=== PATIENT | female | born 2005 | race Asian ===

== ENCOUNTER 2024-08-04 16:26 | Emergency (ER) | payer OTHER, SELFPAY ==
[2024-08-04 16:52] VITALS: BP 133/83; PULSE 46; RESP 18; TEMP 36.3; O2SAT 97; BMI 23.6
[2024-08-04 17:12] LABS: Basophils Absolute Auto 0.05 K/uL (0.00-0.30); Basophils Percent Auto 0.7 % (0.0-3.0); Eosinophils Absolute Auto 0.11 K/uL (0.00-0.50); Eosinophils Percent Auto 1.5 % (0.0-7.0); Hemoglobin* 13.8 gm/dL (12.0-16.0); Immature Granulocytes Abs Auto 0.01 K/uL (0.00-0.30); Immature Granulocytes Pct Auto 0.1 %; Lymphocytes Absolute Auto 2.35 K/uL (0.90-2.90); Lymphocytes Percent Auto 31.6 % (20-44); Mean Corpuscular HGB Conc 32 gm/dL (32-36); Mean Corpuscular Hemoglobin 31 pg (26-34); Mean Corpuscular Volume 97 fL (80-100); Monocytes Percent Auto 5.1 % (0.0-11.0); Neutrophils Absolute Auto 4.53 K/uL (1.7-7.0); Platelet Count* 251 K/uL (140-440); Red Blood Count 4.43 m/uL (4.00-5.20); White Blood Count* 7.43 K/uL (4.50-11.00)
[2024-08-04 17:26] LABS: Slide Review Reflex No
[2024-08-04 17:36] LABS: Albumin* 5.1 g/dL (3.3-5.0); Chloride* 102 mmol/L (96-114); Potassium* 5.2 mmol/L (3.6-5.1); Sodium* 140 mmol/L (135-149)
[2024-08-04 17:38] LABS: Blood Urea Nitrogen* 18 mg/dL (5-24); Creatinine* 0.8 mg/dL (0.6-1.2); Est. Creatinine Clearance* 94.76; Estimated Glomerular Filt Rate 109 ml/min
[2024-08-04 17:39] LABS: Alanine Aminotransferase* 27 U/L (4-35); Alkaline Phosphatase* 68 U/L (40-150); Anion Gap 9 mEq/L (7-15); Aspartate Amino Transferase* 41 U/L (12-35); Bilirubin Direct* 0.3 mg/dL (0.0-0.5); Bilirubin Total* 1.1 mg/dL (0.1-1.5); Carbon Dioxide* 29 mmol/L (20-32); Glucose* 87 mg/dL (60-115); Phosphorus* 3.2 mg/dL (2.5-4.5); Total Protein* 8.4 g/dL (6.0-8.3)
--- NOTE | 2024-08-04 19:10 | ED_ITS ---
HPI - General Adult General Time Seen by Provider: 19:10 Date Seen: 08/04/24 Chief complaint: Arrhythmia/Palpitations Stated complaint: low Heart Rate Time Seen by Provider: 08/04/24 16:34 Source: patient, RN notes reviewed and other Mode of arrival: ambulatory Limitations: no limitations History of Present Illness HPI narrative: This 18-year-old female was sent in by a nurse practitioner Sarah from [facility] for assessment of labs and EKG. Patient was in for follow-up appointment, had not been seen for about 3 weeks. She is starting care through them for anorexia nervosa. Her heart rate was between 40-43 there. They have plans for follow- up. She is wanting her to get labs in have an EKG done here for medical monitoring and safety. Patient does present here, she tells me she is not suicidal. She has intent on following through with her management for her eating disorder and working with [facility]. She is just worried about her heart rate now. We did discuss that heart rate below 40 is 1 of the clinical indications for hospitalization and hers has not been here. 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 We did review that athlete's can have lower resting heart rates as well. She does not have any other concerns for us. Related Data Home Medications ?Medication ?Instructions ?Recorded ?Confirmed No Known Home Medications 08/04/24 08/04/24 Allergies Allergy/AdvReac Type Severity Reaction Status Date / Time No Known Drug Allergies Allergy Verified 08/04/24 17:04 Review of Systems Status of ROS: Reports: 6 or more systems reviewed and unremarkable except as noted in History and below [facility] Medical History (Updated 08/04/24 @ 19:35 by Tesha Rueda MD) Anorexia nervosa ?F50.00 - Anorexia nervosa, unspecified (ICD-10) Social History Do you use any of these nicotine containing products: None How often do you have a drink containing alcohol: never AUDIT-C Alcohol total score: 0 Non-prescribed substance use: denies use Exam Const: Vital Signs, click to edit/add: Vital Signs - 24 hr 08/04/24 16:52 Temperature 97.3 F L Pulse Rate [Pulse Oximeter] 46 L Respiratory Rate 18 Blood Pressure [Ri ght Upper Arm] 133/83 Pulse Oximetry 97 Oxygen Delivery Me thod Room Air This 18-year-old female is alert, interactive, no apparent distress. She has good eye contact. Pupils are equal round, conjugate gaze, sclera clear. Symmetrical facial function. Neck is supple, no thyromegaly masses or adenopathy noted. Lungs are clear, good air entry, wheeze and crackles. CV regular rhythm, slower rate, 50s on monitoring of pulse oximetry. I do not hear any murmur, normal S1-S2. Documenting provider has reviewed patient's vital signs: yes Course Course ED Course: Reviewed with patient that her EKG is reassuring despite the sinus bradycardia. Indications for hospitalization for low heart rate are below 40. She certainly is not meeting that threshold. Her labs are reassuring. We discussed the importance of following through on medical management outpatient for anorexia. There can be significant cardiac complications in she does need to continue to be monitored. This time she is safe for discharge for further outpatient monitoring. Vital Signs Vital signs: Initial Vital Signs Temperature 97.3 F L 08/04/24 16:52 Temperature Source Temporal Artery Scan 08/04/24 16:52 Pulse Rate 46 L 08/04/24 16:52 Respiratory Rate 18 08/04/24 16:52 Blood Pressure 133/83 08/04/24 16:52 Blood Pressure Mean 99 08/04/24 16:52 Pulse Oximetry 97 08/04/24 16:52 Oxygen Delivery Method Room Air 08/04/24 16:52 Vital Signs Temperature 97.3 F L 08/04/24 16:52 Pulse Rate 46 L 08/04/24 16:52 Respiratory Rate 18 08/04/24 16:52 Blood Pressure 133/83 08/04/24 16:52 Pulse Oximetry 97 08/04/24 16:52 Oxygen Delivery Method Room Air 08/04/24 16:52 Temperature 97.3 F L 08/04/24 16:52 Pulse Rate 46 L 08/04/24 16:52 Respiratory Rate 18 08/04/24 16:52 Blood Pressure 133/83 08/04/24 16:52 Pulse Oximetry 97 08/04/24 16:52 Oxygen Delivery Method Room Air 08/04/24 16:52 Medical Decision Making Lab Data Lab results reviewed: Yes I reviewed the patient's lab results Labs: Lab Results 08/04/24 Range/Units 17:06 WBC 7.43 (4.50-11.00) K/uL RBC 4.43 (4.00-5.20) m/uL Hgb 13.8 (12.0-16.0) gm/dL Hct 43.0 (33.0-51.0) % MCV 97 (80-100) fL MCH 31 (26-34) pg MCHC 32 (32-36) gm/dL RDW Coeff of Heath 12.0 (11.5-15.5) % Plt Count 251 (140-440) K/uL Neut % (Auto) 61.0 (42.0-72.0) % Lymph % (Auto) 31.6 (20-44) % [place] % (Auto) 5.1 (0.0-11.0) % Eos % (Auto) 1.5 (0.0-7.0) % Baso % (Auto) 0.7 (0.0-3.0) % Neut # (Auto) 4.53 (1.7-7.0) K/uL Lymph # (Auto) 2.35 (0.90-2.90) K/uL [place] # (Auto) 0.40 (0.00-0.90) K/UL Eos # (Auto) 0.11 (0.00-0.50) K/uL Baso # (Auto) 0.05 (0.00-0.30) K/uL Abs Immat Gran (auto) 0.01 (0.00-0.30) K/uL Imm/Tot Granulo (auto) 0.1 % Sodium 140 (135-149) mmol/L Potassium 5.2 H (3.6-5.1) mmol/L Chloride 102 (96-114) mmol/L Carbon Dioxide 29 (20-32) mmol/L Anion Gap 9 (7-15) mEq/L BUN 18 (5-24) mg/dL Creatinine 0.8 (0.6-1.2) mg/dL Estimated Creat Clear 94.76 Estimated GFR 109 ml/min Glucose 87 (60-115) mg/dL Calcium 10.0 (8.7-10.8) mg/dL Phosphorus 3.2 (2.5-4.5) mg/dL Magnesium 2.0 (1.5-2.6) mg/dL Total Bilirubin 1.1 (0.1-1.5) mg/dL Direct Bilirubin 0.3 (0.0-0.5) mg/dL AST 41 H (12-35) U/L ALT 27 (4-35) U/L Alkaline Phosphatase 68 (40-150) U/L Total Protein 8.4 H (6.0-8.3) g/dL Albumin 5.1 H (3.3-5.0) g/dL ECG Data Attestation: I personally reviewed and interpreted this ECG as follows: (Sinus bradycardia, 50 beats per minute. Computer does not note any KS interval lengthening, no first-degree AV block. There is no active ST or T-wave change s.) Prior ECG tracings: not available for review Discharge Plan Discharge Clinical Impression: Anorexia nervosa, Bradycardia Patient Disposition: Home, Self-Care Condition: Stable Instructions: Anorexia (DC), Bradycardia (ED) Additional Instructions: Need to continue to follow up at [facility] with your medical providers. Can monitor your pulse, if it is dropping below 40, do need medical re-evaluation. Activity Level: Activity as Tolerated Prescriptions: No Action No Known Home Medications Stand Alone Forms: [employer] Info Instructions
--- OUTSIDE RECORDS SUMMARY | 2024-08-04 19:37 | XMS_ITS | Encounter Summary ---
Author Organization [facility] No [facility] [place] Address [address] [place] [place] [address] Care Team Providers Care Guest Services Manager Name Role Phone Radha Dominguez) Primary Care Pr ovider -[phone] Reason for Visit * Reason Comments MESSAGE CENTER CALL Encounter Details Date Type Department Care Team (Late st Contact Info) Description 07/10/2024 [facility] Telephone ADULT MEDICINE [address] [place] [address] Xena Cook (R.N.) [address] [place] [address] MESSAGE CENTER CALL Social History Tobacco Use Types Packs/Day Years Used Date Smoking Tobacco: Never Smokeless Tobacco: Never Alcohol Use Standard Drinks/Week Comments Never 0 (1 standard drink = 0.6 oz pur e alcohol) AUDIT-C Answer Date Recorded Frequency of Alcohol Consumption Never 12/02/2019 Average Number of Drinks Not on file 020 Frequency of Binge Drinking Not on file 07/2019 Substance Use Types Use/Week Comments Never Sex and Gender Information Value Date Recorded Sex Assigned at Not on file Gender Identity Not on file Sexual Orientation Not on file documented as of this encounter Miscellaneous Notes * Telephone Encounter - Janet GroverAStevie) - 07/11/2024 10:04 AM PDT Unable to get a hold of the patient over the phone. Left voicemail for patient to call back to the Call Center. [place]: If the patient calls back, please relay the following message to the patient. Please no need to send an AACC message to PCP office to confirm patient received message. Message for the patient: A follow up in-person office appointment is needed. We have booked an appointment Future Appointments Appointment Date & Time Visit Type Provider Department/Facility Jul 28, 2024 1:50 PM PDT Office Visit Radha Dominguez) ADULT MEDICINE ([facility]) * Telephone Encounter - Xena Cook (R.N.) - 07/10/2024 2:01 PM PDT MA: please assist. TIFFANI with PCP. XENA COOK RN * Telephone Encounter - Xena CookRStevieNStevie) - 07/10/2024 2:01 PM PDT <<<Interfaced Call Center message copied by Xena Cook (R.N.) on [facility] Jul 10, 2024 02:01 PM>>> >>> Original Message --- Received: Katherine Jul 10, 2024 1:59 PM Message Type: Other - [facility], Message Priority: Urgent Member - Message sent: 07/10/2024 13:59:28 PM To: Dwayne DOMINGUEZ M.D., Facility: [facility], Department: MED SCRIPT OUTCOMES: Script Used: CALL BACK Script Answers: MANDATORY TELEPHONE ENCOUNTER DOCUMENTATION: Y - Encounter closed Y - Encounter directs TSR to book appointment MESSAGE TO PROVIDER: (Non-Urgent, Member Urgent, returning call from facility/reason unknown) Y - Encounter closed unable to warm transfer to [facility] ROUTINE/APPOINT AT MEMBER CONVENIENCE: Appropriate for TAV, Video or Office Visit. Y - Booking per telephone encounter instructions WHAT DOES THE MEMBER WANT: Member wants: Call Back ADDITIONAL INFORMATION: Pt. returning missed call from the clinic. No answer at TST station. Message relayed to pt per [facility] workflow. Pt wants to set up physical either next week or the week after asshe will be on her Spring break. Dizziness is better today. No appointments found per AAC search. Please call pt. back to assist. Pharmacy: Not Applicable : No LMP: 06/30/2024 CONTACT INFORMATION: Contact Name, Relationship to Member: George Alberto, Self Contact Instructions: Anytime Phone Today/Tomorrow: [phone] Preferred Language: Latvian CALLBACK PERMISSION: OK to leave information on voicemail SunJul 10 13:59:29 PDT 2024 Telephone Geophysical Laboratory Chief (TSR) : Tejal Fitch Contact Center: [place] [facility] documented in this encounter Plan of Treatment Not on file documented as of this encounter Visit Diagnoses Not on filedocumented in this encounter Care Teams Guest Services Manager Relationship Specialty Start Date End Date Radha Dominguez) [address] [place] [address] [phone] (Work) PCP - General 03/30/24 documented as of this encounter
--- OUTSIDE RECORDS SUMMARY | 2024-08-04 19:37 | XMS_ITS | Encounter Summary ---
Author Organization [facility] No [facility] [place] Address [address] [place] [address] Care Team Providers Care Application Performance Engineer Name Role Phone Cecily Mack) Primary Care Provider -[phone] Mayra Souza (D.OStevie) Primary Care Provide r -[phone] Monisha Weldon) Primary Care Provider Unavailable Liza Vincent) Primary Care Prov ider Unavailable Radha Segal) Primary Care Pr ovider -[phone] Encounter Details Date Type Department Care Team (Late st Contact Info) Description 08/10/2022 Telephone PEDIATRICS [address] [place] [address] Stephane Hernandez (R.N.) [address] [place] [address] Social History Tobacco Use Types Packs/Day Years [...] encounter Miscellaneous Notes * Telephone Encounter - Stephane Hernandez (R.NStevie) - 08/10/2022 10:13 AM PDT Called 2 times to schedule teen weight check documented in this encounter Plan of Treatment Not on file documented as of this encounter Visit Diagnoses Not on filedocumented in this encounter Care Teams Application Performance Engineer Relationship Specialty Start Date End Date Cecily Mack) [address] [place] [phone] (Work) PCP - General 02/09/17 11/11/22 Mayra Souza.June) [address] [place] [phone] -[phone] (Work) PCP - General 11/12/22 11/17/22 Mnoisha Weldon) [address] [place] [phone] PCP - General 11/18/22 08/31/23 Liza Vincent) [address] [place] [phone] PCP - General 12/10/23 Radha Segal) [address] [place] [address] -[phone] (Work) PCP - General 03/30/24 documented as of this encounter
--- OUTSIDE RECORDS SUMMARY | 2024-08-04 19:37 | XMS_ITS | Clinical Summary ---
Author Organization [facility] [place] Address [address] [place] [address] Care Team Providers Care Monkey Trainer Name Role Phone Radha Segal) Primary Care Pr ovider -[phone] Source Comments NOTE: The information displayed by Care Everywhere is extracted from the complete medical record and may not identify all current or past patient conditions.[facility] Allergies Active Allergy Reactions Criticality Noted Date Comments Amoxicillin With Clavulanate Potassium 03/25/2019 rash Peanut - Dietary Itching 01/09/2014 Medications Medication Sig Dispensed Refills Start Date End Date Status Inhalational Spacer (AEROCHAMBER) Misc SpacerIndications: ASTHMA, UNSPECIFIED Use as directed with inhaler 1 Each 02/21/2021 Active EPINEPHrine (ADRENACLICK/EPIPE N) 0.3 mg/0.3 mL Inj AutoInjectorIndica tions:PEANUT ALLERGY INJECT 0.3 ML INTO THIGH AT THE FIRST SIGN OF SEVERE ALLERGIC REACTION OR DIRECTED 2 Each 2 04/21/2021 Active Polyethylene Glycol 3350 (MIRALAX/GLYCOLAX) 17 gram/dose Oral PowdIndications:CO NSTIPATION Mix 17 Grams in 4 to 8 ounces of water or juice and drink by mouth daily as directed for constipation 119 g 03/22/2022 Active norethindrone-e.es tradiol-iron (Junel FE 05/19, ,) 1 mg-20 mcg (21)/75 mg (7) Oral TabIndications:CON TRACEPTIVE COUNSELING Take 1 tablet by mouth daily 84 tablet 3 11/20/2022 11/19/2024 Active Azelastine (ASTELIN) 137 mcg (0.1 %) Nasl SprayIndications:A LLERGIC RHINITIS,HYPERTROP HY OF NASAL TURBINATES Use 2 Sprays in each nostril 2 times a day 60 mL 3 07/17/2023 09/02/2024 Active Albuterol (PROVENTIL/VENTOLI N) 2.5 mg /3 mL (0.083 %) Inhl Neb SolnIndications: THMA, UNSPECIFIED Use 3 mL via nebulizer every 4 hours as needed for quick relief of asthma symptoms (3 mL = 1 vial) 75 mL 04/01/2024 04/01/2026 Active Ciclesonide (Alvesco) 80 mcg/actuation Inhl HFAAIndications: THMA, UNSPECIFIED Inhale 1 Puff by mouth 2 times a day for asthma prevention and control. Rinse mouth well after use 6.1 g 05/01/2024 05/01/2025 Active Fluticasone (FLONASE ALLERGY RELIEF) 50 mcg/actuation Nasl SpSnIndications:AL LERGIC RHINITIS,HYPERTROP HY OF NASAL TURBINATES Use 2 sprays in each nostril daily for 1 week. May adjust to 1 or 2 sprays in each nostril daily 16 mL 05/15/2024 05/15/2026 Active Albuterol (PROAIR/PROVENTIL/ VENTOLIN) 90 mcg/actuation Inhl HFAAIndications: THMA, UNSPECIFIED Inhale 2 Puffs by mouth every 4 hours as needed for wheezing , shortness of breath or cough . For use at school or work. 100 days supply for asthma is 1 canister 6.7 g 07/10/2022 07/09/2024 Active Problems Problem Noted Date Diagnosed Date UNINTENTIONAL WEIGHT LOSS 04/28/2022 GENERALIZED ANXIETY DISORDER 06/02/2020 OBSESSIVE COMPULSIVE DISORDER 04/14/2020 ANOREXIA NERVOSA, RESTRICTING TYPE, UNSPECIFIED 04/11/2020 HX OF EATING DISORDER 12/02/2019 Overview (12/10/2019): Admitted 12/01 with 20# weight loss since June 2019 and bradycardia. D/c 12/09 to [facility]. BRADYCARDIA 12/02/2019 Overview (12/10/2019): 12/01 admission for bradycardia in the setting of restrictive eating and over-exercising. Outpatient HR 44, first night of admission HR 35. 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 Encounters Date Type Department Care Team Description 07/18/2024 [facility] Telephone ADULT MEDICINE [address] [place] [phone] Xena Klein (R.N.) PHYSICAL EXAM, ANNUAL 07/10/2024 [facility] Telephone ADULT MEDICINE [address] [place] [phone] Xena Klein (R.N.) MESSAGE CENTER CALL 07/10/2024 [facility] Member Call History MEDICINE [address] [place] [address] WEIGHT PROBLEM 07/10/2024 [facility] Telephone ADULT MEDICINE [address] [place] [phone] Xena Klein (R.N.) WEIGHT PROBLEM 06/25/2024 Patient Secure Message - / [facility] [address] [place] [phone] Simi Murphy (Psjennie) Letter for my diagnoses 06/25/2024 Patient Secure Message - / [facility] [address] [place] [phone] Ryann Hernández (Ps) Letter of my diagnosis 05/15/2024 Refill HEAD & NECK SURGERY [address] [place] [phone] Radha Segal (Dimitris) Medication Refill from Last 3 Months Immunizations Name Administration Dates Next Due COVID-19 mRNA LNP-S, bivalen t PF 12yrs-adult ([facility]), 30mcg/0.3mL 01/14/2022 COVID-19 mRNA, LNP-S, PF ([facility]) PURPLE CAP 10/16/2020,09/25/2020 DTaP (Diphtheria, Tetanus, a cellular Pertussis) 04/06/2006 BWqP-IHY-HSE (PEDIARIX) (Dip htheria, Tetanus, Acellular pertussis, Hepatitis B, Polio) 03/31/2005,02/03/2005,2004 DTaP-ALY (KINRIX) (Diphtheri a, tetanus, acellular pertussis, polio) 07/05/2009 HAV (Hepatitis A) 10/08/2006,10/13/2005 HIB (Haemophilus influenzae b) 6,03/31/2005,02/03/2005,06/2004 HPV9 (Human Papillomavirus) 9 valent 05/05/2019, 04/19/2018 INF (Influenza) unspecified formulation 01/09/2014,02/27/2011,03/08/2010,02/28,01/28/2007,04/06/2006,03/31/20 05 INF [id number] dose (Influenza I5W7-25). 03/02/2009 INFS Pres Free 6mos-Adult (F lulaval Quadrivalent) (Influenza) 04/19/2018 INFS pres free 65yrs and ove r (Fluad trivalent) (influenza) 02/07/2013,02/03/2012 INFS pres free 6mos-adult (F luarix quadrivalent) (influenza) 04/21/2021,06/08/2020,05/05/2019 MEN-ACYW (MENVEO) (meningoco ccal oligosaccharide ACYW-135) 04/21/2021,04/19/2018 MMR (Measles, Mumps, Rubella) 09/28/2009 MMR-MARLEEN (Measles, Mumps, Rub radha, Varicella) 01/08/2006,01/08/2006 PCV (Pneumococcal conjugate, pneumonia) 10/13/2005,03/31/2005,02/03/2005,06/2004 TB-PPD, (TB skin test) 07/05/2009 Tdap (Tetanus, diphtheria, a cellular pertussis) 11/30/2016 MARLEEN (Varicella, chickenpox) 02/07/2013 Social History Tobacco Use Types Packs/Day Years Used Date Smoking Tobacco: Never Smokeless Tobacco: Never Tobacco Cessation:Counseling Given: Not Answered Alcohol Use Standard Drinks/Week Comments Never 0 [...] on file Sexual Orientation Not on file Last Filed Vital Signs Vital Sign Reading Time Taken Comments Blood Pressure 115/68 11/20/2022 2:42 PM PDT Pulse 57 11/20/2022 2:42 PM PDT Temperature 36.9 C (98.4 F) 11/20/2022 2:42 PM PDT Respiratory Rate 19 12/10/2019 11:51 AM PDT Oxygen Saturation 97% 11/20/2022 2:42 PM PDT Inhaled Oxygen Concentration - - Weight 51.4 kg (113 lb 4.8 oz) 11/20/2022 2:42 P M PDT Height 148 cm (4' 10.27) 04/28/2022 10:00 AM PS T Body Mass Index - - Plan of Treatment Health Maintenance Due Date Last Done Comments PCV20 VACCINE (2 - PCV20/PPSV23) 10/13/2006 10/13/2005, 03/31/2005, 02/03/2005, Additional history exists COVID-19 VACCINE (KP) (2 - P fizer (>=12yrs)) 03/11/2022 01/14/2022, 10/16/2020, 09/25/2020 HIV SCREEN 2022 FLU VACCINE (1) 01/29/2024 04/21/2021, 02/0 12/2020, 05/05/2019, Additional history exists CHLAMYDIA SCREEN 04/30/2024 TDAP VACCINE (2 - Tdap) 11/30/2026 11/30/2016 HEPATITIS B VACCINE Completed 03/31/2005, 02/03/2005, 2004 HPV VACCINE Completed 05/05/2019, 04/19/2018 MENINGOCOCCAL VACCINE Completed 04/21/2021, 018 MARY SCREEN Completed 04/28/2022 Procedures Procedure Name Priority Date/Time Associated Diagnosis Comments SCREENING PERFORMED, ADVERSE CHILDHOOD EXPERIENCE (MARY) <=3 Today 04/28/2022 10:01 AM PST from Last 3 Months or Most Recently Relevant to Health Maintenance Advance Directives * Full Code (Latest Code Status on File) Date Activated Date Inactivated Comments 12/02/2019 6:54 PM 12/11/2019 1:53 AM * Full Code Date Activated Date Inactivated Comments 03/20/2019 1:56 PM 03/21/2019 2:45 AM Care Teams Monkey Trainer Relationship Specialty Start Date End Date Radha Segal) [address] [phone] -[phone] (Work) [facility] - General 03/30/24
--- OUTSIDE RECORDS SUMMARY | 2024-08-04 19:37 | XMS_ITS | Encounter Summary ---
Author Organization [facility] No [facility] [place] Address [address] [place] [address] Care Team Providers Care Jigsawyer Name Role Phone Liza Vincent) Primary Care Prov Radha Webb) Primary Care Pr ovider -[phone] Encounter Details Date Type Department Care Team (Latest Contact Info) Description 12/28/2023 Pharmacy Initiated Order HEAD & NECK SURGERY [address] [place] [address] ALLERGIC RHINITIS; HYPERTROPHY OF NASAL TURBINATES Social History Tobacco Use Types Packs/Day Years [...] on file documented as of this encounter Plan of Treatment Not on file documented as of this encounter Visit Diagnoses Diagnosis ALLERGIC RHINITIS HYPERTROPHY OF NASAL TURBINATES documented in this encounter Care Teams Jigsawyer Relationship Specialty Start Date End Date Liza Vincent) [address] [place] [address] PCP - General 12/10/23 Radha Segal) [address] [place] [phone] -[phone] (Work) PCP - General 03/30/24 documented as of this encounter
--- OUTSIDE RECORDS SUMMARY | 2024-08-04 19:37 | XMS_ITS | Encounter Summary ---
Author Organization [facility] No [facility] [place] Address [address] [place] [address] Care Team Providers Care Director Television News Name Role Phone Radha Dominguez) Primary Care Pr ovider -[phone] Reason for Visit * Reason Comments PHYSICAL EXAM, ANNUAL Encounter Details Date Type Department Care Team (Late st Contact Info) Description 07/18/2024 [facility] Telephone ADULT MEDICINE [address] [place] [address] Xena Klein (R.N.) [address] [place] [address] PHYSICAL EXAM, ANNUAL Social History Tobacco Use Types Packs/Day Years [...] Miscellaneous Notes * Telephone Encounter - Janet Grover) - 07/21/2024 1:40 PM PDT S/W patient. Booked TIFFANI with associate provider. * Telephone Encounter - Xena Klein (R.N.) - 07/21/2024 9:03 AM PDT MA: please call pt and book a TIFFANI with PCP. * Telephone Encounter - Xena Klein (R.NStevie) - 07/21/2024 9:03 AM PDT <<<Interfaced Call Center message copied by Xena Klein (R.N.) on SunJul 21, 2024 09:03 AM>>> >>> Original Message --- Received: SunJul 18, 2024 4:45 PM Message Type: Appointment Request, Message Priority: Non-Urgent - Message sent: 07/18/2024 16:45:37PM To: Dwayne DOMINGUEZ M.D., Facility: [facility], Department: MED SCRIPT/PROTOCOL OUTCOMES: Script Used: PHYSICAL - WITH/WITHOUT MD/ERP ENGINEER Script Answers: APPOINT DURING OFFICE HOURS WITHIN 2 WEEKS: Y - Requests physical BOOKING TIMEFRAME: Within 2 Weeks REASON: No appointments available within appropriate booking timeframe SYMPTOMS: N/A ONSET AND DURATION: N/A WHAT IS BEING REQUESTED OF THE CLINICIAN: Requesting TIFFANI for physical next week PCP preferably, but willing to see another physician if PCP not available ADDITIONAL INFORMATION: Patient is scheduled for 07/28, but will be going back to school. Pharmacy: Not Applicable : No LMP: 07/07/2024 CONTACT INFORMATION: Contact Name, Relationship to Member: George Vazquez, Self Contact Instructions: Anytime on Sunday Phone Today/Tomorrow: [phone] Preferred Language: Lao OK to Send Secure Message: Yes CALLBACK PERMISSION: OK to leave information on voicemail SunJul 18 16:45:37 PDT 2024 Telephone Principal Statistical Programmer (TSR) : Heidi Umana [facility] documented in this encounter Plan of Treatment Not on file documented as of this encounter Visit Diagnoses Not on filedocumented in this encounter Care Teams Director Television News Relationship Specialty Start Date End Date Radha Dominguez) [address] [place] [address] -[phone] (Work) PCP - General 03/30/24 documented as of this encounter
--- OUTSIDE RECORDS SUMMARY | 2024-08-04 19:37 | XMS_ITS | Encounter Summary ---
Author Organization [facility] No [facility] [place] Address [address] [place] [address] Care Team Providers Care Pan Tank Worker Name Role Phone Radha Segal) Primary Care Pr ovider -[phone] Reason for Visit * Reason Comments WEIGHT PROBLEM Encounter Details Date Type Department Care Team (Late st Contact Info) Description 07/10/2024 [facility] Member Call History MEDICINE [address] [place] [phone] WEIGHT PROBLEM Social History Tobacco Use Types Packs/Day Years [...] as of this encounter Miscellaneous Notes * [facility] Call History - CALL CENTER ADVICE NURSE - 07/10/2024 10:16 AM PDT [facility] MEMBER CALL HISTORY MemberID: [id number] Date & Time: 07/10/2024 09:50 AM Location: [facility] Handled by: Theresa Coronel (RN) Call Notes: Mccracken Symptoms and Assessment: low HR in the 50s, HR 50 BP: 119/76 laying, 87, 120/63 standing, vomit(5x in 24 hrs) x 2 wks; restricted diet/purging x few mths worsened since 1 mth ago; denies fever/dizziness/pain/fainting; Pertinent History: anorexia nervosa/ baseline HR: 60s; last BM yesterday Other: currently in [facility]; will be returning to [facility] next wk requests TIFFANI on 07/16 with any clinician; Protocols: 1. Medicine - WEIGHT PROBLEMS/EATING DISORDER Member Responses for Protocol: No Outcome Questions Response 1. EMERGENT CONSULT: : Member does not meet the criteria but in RN`s judgment should be seen in this category. Yes 2. ROUTINE APPOINT AT MEMBER CONVENIENCE: Appropriate for Video Visit, TAV or Office Visit : Appoint per CCMD recommendation Yes Dispositions: EMERGENT CONDITION Activate Appointment Search Person Consulted: Daryl Dash Consult Reason: per Protocol Additional Information: ER if she developed fainiting/pain/dizziness Recommendations: Advice per MD Message Appointment documented in this encounter Plan of Treatment Not on file documented as of this encounter Visit Diagnoses Not on filedocumented in this encounter Care Teams Pan Tank Worker Relationship Specialty Start Date End Date Radha Segal) [address] [place] [address] -[phone] (Work) PCP - General 03/30/24 documented as of this encounter
--- OUTSIDE RECORDS SUMMARY | 2024-08-04 19:38 | XMS_ITS | Encounter Summary ---
Author Organization [facility] No [facility]thern [place] Address [address] [place] [address] Care Team Providers Care Real Estate Site Analyst Name Role Phone Cecily Mack) Primary Care Provider -[phone] Mayra Souza (D.OStevie) Primary Care Provide r -[phone] Monisha Weldon) Primary Care Provider Unavailable Liza Vincent) Primary Care Prov ider Unavailable Radha Segal) Primary Care Pr ovider -[phone] Encounter Details Date Type Department Care Team (Late st Contact Info) Description 12/31/2019 Clinical Documentati on MH/ CHILD AND FAMILY PSYCHIATRY [address] [place] [phone] [place] [address] Social History Tobacco Use Types Packs/Day Years Used Date Smoking Tobacco: Never Alcohol Use Standard Drinks/Week Comments Never 0 (1 standard drink = 0.6 oz pur e alcohol) AUDIT-C Answer Date Recorded Frequency of Alcohol Consumption Never 12/02/2019 Average Number of Drinks Not on file 020 Frequency of Binge Drinking Not on file 07/2019 Sex and Gender Information Value Date Recorded Sex Assigned at Not on file Gender Identity Not on file Sexual Orientation Not on file documented as of this encounter Plan of Treatment Not on file documented as of this encounter Visit Diagnoses Not on filedocumented in this encounter Care Teams Real Estate Site Analyst Relationship Specialty Start Date End Date Cecily Mack) [address] [place] [address] -[phone] (Work) PCP - General 02/09/17 11/11/22 Mayra SouzaD.OStevie) [address] [place], [place] [address] [address] -[phone] (Work) PCP - General 11/12/22 11/17/22 Monisha Weldon) [address] [place], [place] [address] [place] [address] PCP - General 11/18/22 08/31/23 Liza Vincent) [address] [place], [place] [address] [address] PCP - General 12/10/23 Radha Segal) [address] [place] [address] -[phone] (Work) PCP - General 03/30/24 documented as of this encounter
--- OUTSIDE RECORDS SUMMARY | 2024-08-04 19:38 | XMS_ITS | Encounter Summary ---
Author Organization [facility] No [facility] [place] Address [address] [place] [address] Care Team Providers Care Police Justice Name Role Phone Cecily Mack) Primary Care Provider -[phone] Mayra Souza (D.OStevie) Primary Care Provide r -[phone] Monisha Weldon) Primary Care Provider Unavailable Liza Vincent) Primary Care Prov ider Unavailable Radha Segal) Primary Care Pr ovider -[phone] Encounter Details Date Type Department Care Team (Late st Contact Info) Description 12/18/2019 Clinical Documentati on MH/ CHILD AND FAMILY PSYCHIATRY [address] [place] [phone] [place] [address] Social History Tobacco Use Types Packs/Day Years [...] on file documented as of this encounter Last Filed Vital Signs Vital Sign Reading Time Taken Comments Blood Pressure - - Pulse - - Temperature 37.6 C (99.6 F) 12/18/2019 2:21 PM PDT Respiratory Rate - - Oxygen Saturation - - Inhaled Oxygen Concentration - - Weight 47.4 kg (104 lb 6.4 oz) 12/18/2019 2:21 P M PDT Height 147.3 cm (4' 10) 12/18/2019 2:21 PM PDT Body Mass Index 21.82 12/18/2019 2:21 PM PDT Body Mass Index Percentile 70.00% 12/18/2019 2:2 1 PM PDT Growth Chart: [facility] (Girls, 2- 20 Years) documented in this encounter Plan of Treatment Not on file documented as of this encounter Visit Diagnoses Not on filedocumented in this encounter Care Teams Police Justice Relationship Specialty Start Date End Date Cecily Mack) [address] [place], [place] [address] [address] -[phone] (Work) PCP - General 02/09/17 11/11/22 Mayra Souza (D.OStevie) [address] [place] [phone] -[phone] (Work) PCP - General 11/12/22 11/17/22 Monisha Weldon) [address] [place] [phone] PCP - General 11/18/22 08/31/23 Liza Vincent) [address] [place] [phone] PCP - General 12/10/23 Radha Segal.D.) [address] [place] [phone] -[phone] (Work) PCP - General 03/30/24 documented as of this encounter
--- OUTSIDE RECORDS SUMMARY | 2024-08-04 19:38 | XMS_ITS | Encounter Summary ---
Author Organization [facility] No [facility] [place] Address [address] [place] [address] Care Team Providers Care Cabbage Salter Name Role Phone Cecily Mack) Primary Care Provider -[phone] Mayra Souza (D.OStevie) Primary Care Provide r -[phone] Monisha Weldon) Primary Care Provider Unavailable Liza Vincent) Primary Care Prov ider Unavailable Radha Segal) Primary Care Pr ovider -[phone] Encounter Details Date Type Department Care Team (Late st Contact Info) Description 02/05/2020 Clinical Documentati on MH/ CHILD AND FAMILY PSYCHIATRY [address] [place] [phone] [place] [address] Social History Tobacco Use Types Packs/Day Years [...] Pressure - - Pulse - - Temperature 37 C (98.6 F) 02/05/2020 2:19 PM PDT Respiratory Rate - - Oxygen Saturation - - Inhaled Oxygen Concentration - - Weight 50.3 kg (110 lb 12.8 oz) 02/05/2020 2:19 PM PDT Height 147.3 cm (4' 10) 02/05/2020 2:19 PM PDT Body Mass Index 23.16 02/05/2020 2:19 PM PDT Body Mass Index Percentile 79.39% 02/05/2020 2:1 9 PM PDT Growth Chart: [facility] (Girls, 2- 20 Years) documented in this encounter Plan of Treatment Not on file documented as of this encounter Visit Diagnoses Not on filedocumented in this encounter Care Teams Cabbage Salter Relationship Specialty Start Date End Date Cecily Mack) [address] [place] [phone] -[phone] (Work) PCP - General 02/09/17 11/11/22 Mayra SouzaD.OStevie) [address] [place] [phone] -[phone] (Work) PCP - General 11/12/22 11/17/22 Monisha Weldon) [address] [place] [phone] PCP - General 11/18/22 08/31/23 Liza Vincent) [address] [place] [phone] PCP - General 12/10/23 Radha Segal) [address] [place] [phone] -[phone] (Work) PCP - General 03/30/24 documented as of this encounter
--- OUTSIDE RECORDS SUMMARY | 2024-08-04 19:38 | XMS_ITS | Encounter Summary ---
Author Organization [facility] No [facility] [place] Address [address] [place] [address] Care Team Providers Care Sediment Remediation Consultant Name Role Phone Cecily Mack) Primary Care Provider -[phone] Mayra Souza (D.OStevie) Primary Care Provide r -[phone] Monisha Weldon) Primary Care Provider Unavailable Liza Vincent) Primary Care Prov ider Unavailable Radha Segal) Primary Care Pr ovider -[phone] Encounter Details Date Type Department Care Team (Late st Contact Info) Description 12/10/2019 Clinical Documentati on MH/ CHILD AND FAMILY PSYCHIATRY [address] [place] [phone] [place] [address] Social History Tobacco Use Types Packs/Day Years [...] Pressure - - Pulse - - Temperature 37.2 C (98.9 F) 12/10/2019 5:45 PM PDT Respiratory Rate - - Oxygen Saturation - - Inhaled Oxygen Concentration - - Weight 48.7 kg (107 lb 6.4 oz) 12/10/2019 5:45 P M PDT Height 148.1 cm (4' 10.31) 12/10/2019 5:45 PM P DT Body Mass Index 22.21 12/10/2019 5:45 PM PDT Body Mass Index Percentile 73.39% 12/10/2019 5:4 5 PM PDT Growth Chart: [facility] (Girls, 2- 20 Years) documented in this encounter Plan of Treatment Not on file documented as of this encounter Visit Diagnoses Not on filedocumented in this encounter Care Teams Sediment Remediation Consultant Relationship Specialty Start Date End Date Cecily Mack) [address] [place] [phone] -[phone] (Work) PCP - General 02/09/17 11/11/22 Mayra Souza (D.OStevie) [address] [place] [phone] -[phone] (Work) PCP - General 11/12/22 11/17/22 Monisha Weldon) [address] [place] [phone] PCP - General 11/18/22 08/31/23 Liza Vincent) [address] [place] [phone] PCP - General 12/10/23 Radha Segal) [address] [phone] -[phone] (Work) [facility] - General 03/30/24 documented as of this encounter
--- OUTSIDE RECORDS SUMMARY | 2024-08-04 19:38 | XMS_ITS | Encounter Summary ---
Author Organization [facility] No [facility]thern [place] Address [address] [place] [address] Care Team Providers Care Ice Hockey Coach Name Role Phone Cecily Mack) Primary Care Provider -[phone] Mayra Souza (D.OStevie) Primary Care Provide r -[phone] Monisha Weldon) Primary Care Provider Unavailable Liza Vincent) Primary Care Prov ider Unavailable Radha Segal) Primary Care Pr ovider -[phone] Encounter Details Date Type Department Care Team (Late st Contact Info) Description 02/11/2020 Clinical Documentati on MH/ CHILD AND FAMILY PSYCHIATRY [address] [place] [phone] [place] [address] Social History Tobacco Use Types Packs/Day Years [...] Pressure - - Pulse - - Temperature 37.1 C (98.7 F) 02/11/2020 11:50 AM PDT Respiratory Rate - - Oxygen Saturation - - Inhaled Oxygen Concentration - - Weight 50.8 kg (112 lb) 02/11/2020 11:50 AM PDT Height 147.3 cm (4' 10) 02/11/2020 11:50 AM PDT Body Mass Index 23.41 02/11/2020 11:50 AM PDT Body Mass Index Percentile 80.81% 02/11/2020 11: 50 AM PDT Growth Chart: [facility] (Girls, 2- 20 Years) documented in this encounter Plan of Treatment Not on file documented as of this encounter Visit Diagnoses Not on filedocumented in this encounter Care Teams Ice Hockey Coach Relationship Specialty Start Date End Date Cecily Mack) [address] [place] [phone] -[phone] (Work) PCP - General 02/09/17 11/11/22 Mayra SouzaD.OStevie) [address] [place] [phone] -[phone] (Work) PCP - General 11/12/22 11/17/22 Monisha Weldon) [address] [place] [phone] PCP - General 11/18/22 08/31/23 Liza Vincent) [address] [place] [phone] PCP - General 12/10/23 Radha Segal) [address] [place] [phone] -[phone] (Work) PCP - General 03/30/24 documented as of this encounter
--- OUTSIDE RECORDS SUMMARY | 2024-08-04 19:38 | XMS_ITS | Clinical Summary ---
Author Organization [facility] Address [address] [place] [address] Care Team Providers Care Scientific Glass Blower Name Role Phone Unavailable Primary Care Provider Unavailabl e Source Comments This information has been disclosed to you from records protected by Federalconfidentiality rules (42 CFR Part 2). The Federal rules prohibit you frommaking any further disclosure of this informationunless further disclosure isexpressly permitted by the written consent of the person to whom it pertains oras otherwise permitted by 42 CFR Part 2. The information released containselements of the medical record deemed pertinent for the care of the patient.[facility] Social History Tobacco Use Types Packs/Day Years Used Date Smoking Tobacco: Never Assessed Comments Unknown Sex and Gender Information Value Date Recorded Sex Assigned at Not on file Legal Sex Female 10:01 AM PDT Gender Identity Not on file Sexual Orientation Not on file Plan of Treatment Not on file
--- OUTSIDE RECORDS SUMMARY | 2024-08-04 19:38 | XMS_ITS | Encounter Summary ---
Author Organization [facility] No [facility]thern [place] Address [address] [place] [address] Care Team Providers Care Production Laborer Name Role Phone Cecily Mack) Primary Care Provider -[phone] Mayra Souza (D.OStevie) Primary Care Provide r -[phone] Monisha Weldon) Primary Care Provider Unavailable Liza Vincent) Primary Care Prov ider Unavailable Radha Segal) Primary Care Pr ovider -[phone] Encounter Details Date Type Department Care Team (Late st Contact Info) Description 12/15/2019 Clinical Documentati on MH/ CHILD AND FAMILY PSYCHIATRY [address] [place] [phone] [place] [address] Social History Tobacco Use Types Packs/Day Years [...] Pressure - - Pulse - - Temperature 37.4 C (99.4 F) 12/15/2019 2:59 PM PDT Respiratory Rate - - Oxygen Saturation - - Inhaled Oxygen Concentration - - Weight 47.7 kg (105 lb 3.2 oz) 12/15/2019 2:59 P M PDT Height 147.3 cm (4' 10) 12/15/2019 2:59 PM PDT Body Mass Index 21.99 12/15/2019 2:59 PM PDT Body Mass Index Percentile 71.52% 12/15/2019 2:5 9 PM PDT Growth Chart: [facility] (Girls, 2- 20 Years) documented in this encounter Plan of Treatment Not on file documented as of this encounter Visit Diagnoses Not on filedocumented in this encounter Care Teams Production Laborer Relationship Specialty Start Date End Date Cecily Mack) [facility] [place] [address] -[phone] (Work) PCP - General 02/09/17 11/11/22 Mayra Souza (D.OStevie) [address] [place] [phone] -[phone] (Work) PCP - General 11/12/22 11/17/22 Monisha Weldon) [address] [place] [phone] PCP - General 11/18/22 08/31/23 Liza Vincent) [address] [place] [phone] PCP - General 12/10/23 Radha Segal.D.) [address] [place] [phone] -[phone] (Work) PCP - General 03/30/24 documented as of this encounter
--- OUTSIDE RECORDS SUMMARY | 2024-08-04 19:38 | XMS_ITS | Encounter Summary ---
Author Organization [facility] No [facility]thern [place] Address [address] [place] [address] Care Team Providers Care Early Education Teacher Name Role Phone Radha Dominguez) Primary Care Pr ovider -[phone] Reason for Visit * Reason Comments WEIGHT PROBLEM Encounter Details Date Type Department Care Team (Late st Contact Info) Description 07/10/2024 [facility] Telephone ADULT MEDICINE [address] [place] [address] Xena Cook (R.N.) [address] [place] [address] WEIGHT PROBLEM Social History Tobacco Use Types [...] encounter Miscellaneous Notes * Telephone Encounter - Xena Cook (R.N.) - 07/10/2024 10:57 AM PDT Attention Staff and Call Center Representatives: A message was left asking the patient, parent, or caregiver to call back to our Call Center to receive the following message. Message From: The patient's PCP Relayed to me via: A forwarded [facility] note Confirmation: Do not send an AACC message to the PCP to confirm patient has received this message. Message Text: staffing program manager: LMOR. Pt needs a TIFFANI where she is at. F/u with PCP when she returns and call Mental Health at [phone] (this is self-referral). XENA COOK RN * Telephone Encounter - Xena CookN.) - 07/10/2024 10:40 AM PDT <<<Interfaced Call Center message copied by Xena Cook (R.N.) on SunJul 10, 2024 10:40 AM>>> >>> Original Message --- Received: SunJul 10, 2024 10:14 AM Message Type: Appointment Request, Message Priority: Urgent Clinical - Message sent: 07/10/2024 10:14:27 AM To: Dwayne DOMINGUEZ M.D., Facility: [facility], Department: [facility] SCRIPT/PROTOCOL OUTCOMES: Protocol Used: WEIGHT PROBLEMS/EATING DISORDER Protocol Answers: EMERGENT CONSULT: Y - Member does not meet the criteria but in RN`s judgment should be seen in this category. APPOINT DURING OFFICE HOURS WITHIN 1 WEEK: Appropriate for Video Visit, TAV or Office Visit Y - Member does not meet the criteria but in RN`s judgment should be seen in this category ROUTINE APPOINT AT MEMBER CONVENIENCE: Appropriate for Video Visit, TAV or Office Visit Y - Appoint per CCMD recommendation BOOKING TIMEFRAME: Any Time REASON: No appointments available within appropriate booking timeframe RN Message Notes: Mccracken Symptoms and Assessment: low HR in the 50s, HR 50 BP: 119/76 laying, 87, 120/63 standing, vomit (5x in 24 hrs) x 2 wks; restricted diet/purging x few mths worsened since 1 mth ago; denies fever/dizziness/pain/fainting; Pertinent History: anorexia nervosa/ baseline HR: 60s; last BM yesterday Other: currently in [facility]; will be returning to [facility] next requests TIFFANI on 07/16 with any clinician; SYMPTOMS: . ONSET AND DURATION: . WHAT IS BEING REQUESTED OF THE CLINICIAN: requests TIFFANI on 07/16 with any clinician; ADDITIONAL INFORMATION: . Verification: Caller Doesn't Know Pharmacy: Not Applicable : No LMP: Don't Know CONTACT INFORMATION: Contact Name, Relationship to Member: George Alberto, Self Contact Instructions: anytime Phone Within 4 Hours: [phone] Preferred Language: Malawian CALLBACK PERMISSION: OK to leave information on voicemail SunJul 10 10:14:29 PDT 2024 Registered Nurse (RN) : Theresa Coronel Contact Center: [facility] documented in this encounter Plan of Treatment Not on file documented as of this encounter Visit Diagnoses Not on filedocumented in this encounter Care Teams Early Education Teacher Relationship Specialty Start Date End Date Radha Dominguez) [address] [place] [phone] -[phone] (Work) PCP - General 03/30/24 documented as of this encounter
--- OUTSIDE RECORDS SUMMARY | 2024-08-04 19:38 | XMS_ITS | Encounter Summary ---
Author Organization [facility] No [facility]thern [place] Address [address] [place] [address] Care Team Providers Care Braker Passenger Train Name Role Phone Cecily Mack) Primary Care Provider -[phone] Mayra Souza (D.OStevie) Primary Care Provide r -[phone] Monisha Weldon) Primary Care Provider Unavailable Liza Vincent) Primary Care Prov ider Unavailable Radha Segal) Primary Care Pr ovider -[phone] Encounter Details Date Type Department Care Team (Late st Contact Info) Description 12/31/2019 Clinical Documentati on MH/ CHILD AND FAMILY PSYCHIATRY [address] [place] [phone] [place] [address] Social History Tobacco Use Types Packs/Day Years [...] - Pulse - - Temperature 37.2 C (99 F) 12/31/2019 11:41 AM PDT Respiratory Rate - - Oxygen Saturation - - Inhaled Oxygen Concentration - - Weight 47.2 kg (104 lb) 12/31/2019 11:41 AM PDT Height 147.3 cm (4' 10) 12/31/2019 11:41 AM PDT Body Mass Index 21.74 12/31/2019 11:41 AM PDT Body Mass Index Percentile 69.10% 12/31/2019 11: 41 AM PDT Growth Chart: [facility] (Girls, 2- 20 Years) documented in this encounter Plan of Treatment Not on file documented as of this encounter Visit Diagnoses Not on filedocumented in this encounter Care Teams Braker Passenger Train Relationship Specialty Start Date End Date Cecily Mack) [address] [place] [phone] -[phone] (Work) PCP - General 02/09/17 11/11/22 Mayra Souza (D.OStevie) [address] [place] [phone] -[phone] (Work) PCP - General 11/12/22 11/17/22 Monisha Weldon) [address] [place] [phone] PCP - General 11/18/22 08/31/23 Liza Vincent) [address] [place] [phone] PCP - General 12/10/23 Radha Segal) [address] [place] [address] -[phone] (Work) PCP - General 03/30/24 documented as of this encounter
--- OUTSIDE RECORDS SUMMARY | 2024-08-04 19:38 | XMS_ITS | Encounter Summary ---
Author Organization [facility] No [facility]thern [place] Address [address] [place] [address] Care Team Providers Care Hot Metal Crane Operator Name Role Phone Cecily Mack) Primary Care Provider -[phone] Mayra Souza (D.OStevie) Primary Care Provide r -[phone] Monisha Weldon) Primary Care Provider Unavailable Liza Vincent) Primary Care Prov ider Unavailable Radha Segal) Primary Care Pr ovider -[phone] Encounter Details Date Type Department Care Team (Late st Contact Info) Description 02/23/2022 Telephone PEDIATRICS [address] [place] [address] Stephane Hernandez (R.N.) [address] [place] [address] Social History Tobacco Use Types Packs/Day Years [...] Notes * Telephone Encounter - Stephane Hernandez (Vladimir) - 02/23/2022 2:13 PM PDT Called parent to schedule a teen apt for wt check and vital signs. Mom decline appointment at this time. This was the 4th attempt to schedule apt. Mom feels George is doing well. Mom sees George eating 3 meals and 3 snacks daily. Mom request to not have us call back. Mom will reach out to PCP if she feels George needs an appointment. Verbalize understanding and offer support to mom if things change. documented in this encounter Plan of Treatment Not on file documented as of this encounter Visit Diagnoses Not on filedocumented in this encounter Care Teams Hot Metal Crane Operator Relationship Specialty Start Date End Date Cecily Mack) [address] [place] [phone] -[phone] (Work) PCP - General 02/09/17 11/11/22 Mayra Souza.June) [address] [place] [phone] -[phone] (Work) PCP - General 11/12/22 11/17/22 Monisha Weldon) [address] [place] [phone] PCP - General 11/18/22 08/31/23 Liza Vincent) [address] [place] [address] [place] [address] PCP - General 12/10/23 Radha Segal) [address] [place] [address] -[phone] (Work) PCP - General 03/30/24 documented as of this encounter
--- OUTSIDE RECORDS SUMMARY | 2024-08-04 19:38 | XMS_ITS | Encounter Summary ---
Author Organization [facility] [place] Address [address] [place] [address] Care Team Providers Care Reference Services Head Name Role Phone Cecily Mack) Primary Care Provider -[phone] Mayra Souza (D.OStevie) Primary Care Provide r -[phone] Monisha Weldon) Primary Care Provider Unavailable Liza Vincent) Primary Care Prov ider Unavailable Radha Segal) Primary Care Pr ovider -[phone] Encounter Details Date Type Department Care Team (Late st Contact Info) Description 01/21/2020 Clinical Documentati on MH/ CHILD AND FAMILY PSYCHIATRY [address] [place] [phone] [place] [address] Social History Tobacco Use Types Packs/Day Years [...] - - Temperature 37.2 C (99 F) 01/21/2020 11:51 AM PDT Respiratory Rate - - Oxygen Saturation - - Inhaled Oxygen Concentration - - Weight 49.1 kg (108 lb 3.2 oz) 01/21/20 20 11:51 AM PDT Height 147.3 cm (4' 10) 01/21/2020 11: 51 AM PDT Body Mass Index 22.61 01/21/2020 11:51 AM PDT Body Mass Index Percentile 75.90% 01/20 11:51 AM PDT Growth Chart: [facility] (Girls, 2- 20 Years) documented in this encounter Plan of Treatment Not on file documented as of this encounter Visit Diagnoses Not on filedocumented in this encounter Care Teams Reference Services Head Relationship Specialty Start Date End Date Cecily Mack) [address] [place] [phone] -[phone] (Work) PCP - General 02/09/17 11/11/22 Mayra SouzaD.OStevie) [address] [place] [phone] -[phone] (Work) PCP - General 11/12/22 11/17/22 Monisha Weldon) [address] [place] [phone] PCP - General 11/18/22 08/31/23 Liza Vincent) [address] [place] [phone] PCP - General 12/10/23 Radha Segal) [address] [place] [phone] -[phone] (Work) PCP - General 03/30/24 documented as of this encounter
--- OUTSIDE RECORDS SUMMARY | 2024-08-04 19:38 | XMS_ITS | Encounter Summary ---
Author Organization [facility] [place] Address [address] [place] [address] Care Team Providers Care Motor Vehicle Lecturer Name Role Phone Cecily Mack) Primary Care Provider -[phone] Mayra Souza (D.OStevie) Primary Care Provide r -[phone] Monisha Weldon) Primary Care Provider Unavailable Liza Vincent) Primary Care Prov ider Unavailable Radha Segal) Primary Care Pr ovider -[phone] Encounter Details Date Type Department Care Team (Late st Contact Info) Description 03/03/2020 Clinical Documentati on MH/ CHILD AND FAMILY PSYCHIATRY [address] [place] [phone] [place] [address] Social History Tobacco Use Types Packs/Day Years [...] Pressure - - Pulse - - Temperature 36.9 C (98.5 F) 03/03/2020 11:48 AM PST Respiratory Rate - - Oxygen Saturation - - Inhaled Oxygen Concentration - - Weight 51.3 kg (113 lb 3.2 oz) 03/03/20 20 11:48 AM PST Height 147.3 cm (4' 10) 03/03/2020 11: 48 AM PST Body Mass Index 23.66 03/03/2020 11:48 AM PST Body Mass Index Percentile 81.99% 03/03 11:48 AM PST Growth Chart: [facility] (Girls, 2- 20 Years) documented in this encounter Plan of Treatment Not on file documented as of this encounter Visit Diagnoses Not on filedocumented in this encounter Care Teams Motor Vehicle Lecturer Relationship Specialty Start Date End Date Cecily Mack) [address] [place] [phone] -[phone] (Work) PCP - General 02/09/17 11/11/22 Mayra Souza (D.OStevie) [address] [place] [phone] -[phone] (Work) PCP - General 11/12/22 11/17/22 Monisha Weldon) [address] [place] [phone] PCP - General 11/18/22 08/31/23 Liza Vincent) [address] [place] [phone] PCP - General 12/10/23 Radha SegalD.) [address] [place] [phone] -[phone] (Work) [facility] - General 03/30/24 documented as of this encounter
--- OUTSIDE RECORDS SUMMARY | 2024-08-04 19:38 | XMS_ITS | Encounter Summary ---
Author Organization [facility] [place] Address [address] [place] [address] Care Team Providers Care Roller Stitcher Name Role Phone Cecily Mack) Primary Care Provider -[phone] Mayra Souza (D.OStevie) Primary Care Provide r -[phone] Monisha Weldon) Primary Care Provider Unavailable Liza Vincent) Primary Care Prov ider Unavailable Radha Segal) Primary Care Pr ovider -[phone] Encounter Details Date Type Department Care Team (Late st Contact Info) Description 01/14/2020 Clinical Documentati on MH/ CHILD AND FAMILY PSYCHIATRY [address] [place] [phone] [place] [address] Social History Tobacco Use Types Packs/Day Years Used Date Smoking Tobacco: Never Alcohol Use Standard Drinks/Week Comments Never 0 (1 standard drink = 0.6 oz pur e alcohol) AUDIT-C Answer Date Recorded Frequency of Alcohol Consumption Never 12/02/2019 Average Number of Drinks Not on file Frequency of Binge Drinking Not on file 07/2019 Sex and Gender Information Value Date Recorded Sex Assigned at Not on file Gender Identity Not on file Sexual Orientation Not on file documented as of this encounter Last Filed Vital Signs Vital Sign Reading Time Taken Comments Blood Pressure - - Pulse - - Temperature 37 C (98.6 F) 01/14/2020 11:52 AM PDT Respiratory Rate - - Oxygen Saturation - - Inhaled Oxygen Concentration - - Weight 48.4 kg (106 lb 12.8 oz) 11:52 AM PDT Height 147.3 cm (4' 10) 01/14/2020 11: 52 AM PDT Body Mass Index 22.32 01/14/2020 11:52 AM PDT Body Mass Index Percentile 73.81% 01/13 11:52 AM PDT Growth Chart: [facility] (Girls, 2- 20 Years) documented in this encounter Plan of Treatment Not on file documented as of this encounter Visit Diagnoses Not on filedocumented in this encounter Care Teams Roller Stitcher Relationship Specialty Start Date End Date Cecily Mack) [address] [place] [phone] -[phone] (Work) PCP - General 02/09/17 11/11/22 Mayra SouzaD.OStevie) [address] [place] [phone] -[phone] (Work) PCP - General 11/12/22 11/17/22 Monisha Weldon) [address] [place] [phone] PCP - General 11/18/22 08/31/23 Liza Vincent) [address] [place] [phone] PCP - General 12/10/23 Radha Segal) [address] [place] [phone] -[phone] (Work) PCP - General 03/30/24 documented as of this encounter
--- OUTSIDE RECORDS SUMMARY | 2024-08-04 19:38 | XMS_ITS | Encounter Summary ---
Author Organization [facility] [place] Address [address] [place] [address] Care Team Providers Care Plumbing Inspector Name Role Phone Cecily Mack) Primary Care Provider -[phone] Mayra Souza (D.OStevie) Primary Care Provide r -[phone] Monisha Weldon) Primary Care Provider Unavailable Liza Vincent) Primary Care Prov ider Unavailable Radha Segal) Primary Care Pr ovider -[phone] Encounter Details Date Type Department Care Team (Late st Contact Info) Description 02/25/2020 Clinical Documentati on MH/ CHILD AND FAMILY PSYCHIATRY [address] [place] [phone] [place] [address] Social History Tobacco Use Types Packs/Day Years [...] Pressure - - Pulse - - Temperature 36.8 C (98.3 F) 02/25/2020 1:51 PM PDT Respiratory Rate - - Oxygen Saturation - - Inhaled Oxygen Concentration - - Weight 51 kg (112 lb 6.4 oz) 02/25/2020 1:51 PM PDT Height 147.3 cm (4' 10) 02/25/2020 1:51 PM PDT Body Mass Index 23.49 02/25/2020 1:51 PM PDT Body Mass Index Percentile 81.13% 02/25/2020 1:5 1 PM PDT Growth Chart: [facility] (Girls, 2- 20 Years) documented in this encounter Plan of Treatment Not on file documented as of this encounter Visit Diagnoses Not on filedocumented in this encounter Care Teams Plumbing Inspector Relationship Specialty Start Date End Date Cecily Mack) [address] [place] [phone] -[phone] (Work) PCP - General 02/09/17 11/11/22 Mayra SouzaD.OStevie) [address] [place] [phone] -[phone] (Work) PCP - General 11/12/22 11/17/22 Monisha Weldon) [address] [place] [phone] PCP - General 11/18/22 08/31/23 Liza Vincent) [address] [place] [phone] PCP - General 12/10/23 Radha Segal) [address] [place] [phone] -[phone] (Work) PCP - General 03/30/24 documented as of this encounter
--- OUTSIDE RECORDS SUMMARY | 2024-08-04 19:38 | XMS_ITS | Encounter Summary ---
Author Organization [facility] No [facility] [place] Address [address] [address] Care Team Providers Care Budget Manager Name Role Phone Cecily Mack) Primary Care Provider -[phone] Mayra Souza (D.OStevie) Primary Care Provide r -[phone] Monisha Weldon) Primary Care Provider Unavailable Liza Vincent) Primary Care Prov ider Unavailable Radha Segal) Primary Care Pr ovider -[phone] Encounter Details Date Type Department Care Team (Late st Contact Info) Description 02/18/2020 Clinical Documentati on MH/ CHILD AND FAMILY PSYCHIATRY [address] [place] [phone] [place] [address] Social History Tobacco Use Types Packs/Day Years [...] Pressure - - Pulse - - Temperature 36.7 C (98 F) 02/18/2020 11:47 AM PDT Respiratory Rate - - Oxygen Saturation - - Inhaled Oxygen Concentration - - Weight 50.9 kg (112 lb 3.2 oz) 02/18/20 11:47 AM PDT Height 147.3 cm (4' 10) 02/18/2020 11: 47 AM PDT Body Mass Index 23.45 02/18/2020 11:47 AM PDT Body Mass Index Percentile 80.97% 02/17 11:47 AM PDT Growth Chart: [facility] (Girls, 2- 20 Years) documented in this encounter Plan of Treatment Not on file documented as of this encounter Visit Diagnoses Not on filedocumented in this encounter Care Teams Budget Manager Relationship Specialty Start Date End Date Cecily Mack) [address] [place] [phone] -[phone] (Work) PCP - General 02/09/17 11/11/22 Mayra SouzaD.OStevie) [address] [place] [phone] -[phone] (Work) PCP - General 11/12/22 11/17/22 Monisha Weldon) [address] [place] [phone] PCP - General 11/18/22 08/31/23 Liza Vincent) [address] [place] [phone] PCP - General 12/10/23 Radha Segal) [address] [place] [phone] -[phone] (Work) PCP - General 03/30/24 documented as of this encounter
--- OUTSIDE RECORDS SUMMARY | 2024-08-04 19:38 | XMS_ITS | Encounter Summary ---
Author Organization [facility] No [facility] [place] Address [address] [place] [address] Care Team Providers Care Machine Sizer Name Role Phone Cecily Mack) Primary Care Provider -[phone] Mayra Souza (D.OStevie) Primary Care Provide r -[phone] Monisha Weldon) Primary Care Provider Unavailable Liza Vincent) Primary Care Prov ider Unavailable Radha Segal) Primary Care Pr ovider -[phone] Encounter Details Date Type Department Care Team (Late st Contact Info) Description 03/10/2020 Clinical Documentati on MH/ CHILD AND FAMILY PSYCHIATRY [address] [place] [phone] [place] [address] Social History Tobacco Use Types Packs/Day Years [...] Pressure - - Pulse - - Temperature 36.6 C (97.9 F) 03/10/2020 11:51 AM PST Respiratory Rate - - Oxygen Saturation - - Inhaled Oxygen Concentration - - Weight 51.4 kg (113 lb 6.4 oz) 03/10/20 20 11:51 AM PST Height 147.3 cm (4' 10) 03/10/2020 11: 51 AM PST Body Mass Index 23.7 03/10/2020 11:51 AM PST Body Mass Index Percentile 82.14% 03/10 11:51 AM PST [facility] Chart: [facility] (Girls, 2- 20 Years) documented in this encounter Plan of Treatment Not on file documented as of this encounter Visit Diagnoses Not on filedocumented in this encounter Care Teams Machine Sizer Relationship Specialty Start Date End Date Cecily Mack) [address] [place] [phone] -[phone] (Work) PCP - General 02/09/17 11/11/22 Mayra Souza (D.OStevie) [address] [place] [phone] -[phone] (Work) PCP - General 11/12/22 11/17/22 Monisha Weldon) [address] [place] [phone] PCP - General 11/18/22 08/31/23 Liza Vincent) [address] [place] [phone] PCP - General 12/10/23 Radha SegalD.) [address] [place] [phone] -[phone] (Work) [facility] - General 03/30/24 documented as of this encounter
--- OUTSIDE RECORDS SUMMARY | 2024-08-04 19:38 | XMS_ITS | Encounter Summary ---
Author Organization [facility] [place] Address [address] [place] [address] Care Team Providers Care Poultry Scalder Name Role Phone Cecily Mack) Primary Care Provider -[phone] Mayra Souza (D.OStevie) Primary Care Provide r -[phone] Monisha Weldon) Primary Care Provider Unavailable Liza Vincent) Primary Care Prov ider Unavailable Radha Segal) Primary Care Pr ovider -[phone] Encounter Details Date Type Department Care Team (Late st Contact Info) Description 01/07/2020 Clinical Documentati on MH/ CHILD AND FAMILY PSYCHIATRY [address] [place] [phone] [place] [address] Social History Tobacco Use Types Packs/Day Years [...] - - Temperature 37 C (98.6 F) 01/07/2020 11:55 AM PDT Respiratory Rate - - Oxygen Saturation - - Inhaled Oxygen Concentration - - Weight 48.6 kg (107 lb 3.2 oz) 01/07/20 11:55 AM PDT Height 147.3 cm (4' 10) 01/07/2020 11: 55 AM PDT Body Mass Index 22.4 01/07/2020 11:55 AM PDT Body Mass Index Percentile 74.52% 01/06 11:55 AM PDT Growth Chart: [facility] (Girls, 2- 20 Years) documented in this encounter Plan of Treatment Not on file documented as of this encounter Visit Diagnoses Not on filedocumented in this encounter Care Teams Poultry Scalder Relationship Specialty Start Date End Date Cecily Mack) [address] [place] [phone] -[phone] (Work) PCP - General 02/09/17 11/11/22 Mayra SouzaD.OStevie) [address] [place] [phone] -[phone] (Work) PCP - General 11/12/22 11/17/22 Monisha Weldon) [address] [place] [phone] PCP - General 11/18/22 08/31/23 Liza Vincent) [address] [place] [phone] PCP - General 12/10/23 Radha Segal) [address] [place] [phone] -[phone] (Work) PCP - General 03/30/24 documented as of this encounter
--- OUTSIDE RECORDS SUMMARY | 2024-08-04 19:38 | XMS_ITS | Encounter Summary ---
Author Organization [facility] No [facility] [place] Address [address] [place] [address] Care Team Providers Care Vp Integrity Name Role Phone Cecily Mack) Primary Care Provider -[phone] Mayra Souza (D.OStevie) Primary Care Provide r -[phone] Monisha Weldon) Primary Care Provider Unavailable Liza Vincent) Primary Care Prov ider Unavailable Radha Segal) Primary Care Pr ovider -[phone] Encounter Details Date Type Department Care Team (Late st Contact Info) Description 01/23/2020 Orders Only PEDIATRICS [address] [place] [phone] Cecily Mack) [address] [place] [phone] -[phone] (Work) SCREENING Social History Tobacco Use Types Packs/Day Years [...] on file documented as of this encounter Procedures Procedure Name Priority Date/Time Associated Diagnosis Comments HEMOGLOBIN A1C Routine 01/23/2020 2:38 PM PDT SCREENING documented in this encounter Results * HEMOGLOBIN A1C (01/23/2020 2:38 PM PDT) Hgb A1c % 5.4 <=5.6 % [facility] ESTIMATED AVERAGE GLUCOSE 108 85 - 126 mg/dL [facility], [facility] 01/23/2020 2:38 PM PDT 01/23/2020 11:17 PM PDT Cecily Donnelly) [place] BLOOD [facility] [address] [place] [address] documented in this encounter Visit Diagnoses Diagnosis SCREENING documented in this encounter Care Teams Vp Integrity Relationship Specialty Start Date End Date Cecily Mack) [address] [place] [phone] -[phone] (Work) PCP - General 02/09/17 11/11/22 Mayra Souza) [address] [place] [phone] -[phone] (Work) PCP - General 11/12/22 11/17/22 Monisha Weldon) [address] [place] [phone] PCP - General 11/18/22 08/31/23 Liza Vincent) [address] [place] [phone] PCP - General 12/10/23 Radha Segal) [address] [place] [phone] -[phone] (Work) PCP - General 03/30/24 documented as of this encounter
--- OUTSIDE RECORDS SUMMARY | 2024-08-04 19:38 | XMS_ITS | Encounter Summary ---
Author Organization [facility] Address [address] [place] [address] Care Team Providers Care Labour Market Economist Name Role Phone Unavailable Primary Care Provider Unavailabl e Encounter Details Date Type Department Care Team (Late st Contact Info) Description 07/17/[address] Forms Only [facility] Emergency Department [place] [address] [place] [address] Clyde Leblanc MD [address] [place] [address] Social History Tobacco Use Types Packs/Day Years Used Date Smoking Tobacco: Never Assessed Comments Unknown Sex and Gender Information Value Date Recorded Sex Assigned at Not on file Legal Sex Female 10:01 AM PDT Gender Identity Not on file Sexual Orientation Not on file documented as of this encounter ED Notes * Clyde Leblanc MD - 07/17/2015 12:47 PM PDT [facility] Emergency Department [address] [place] [address] Patient: NICHOL ALBERTO : 2005 MR #: [id number] Age/Gender: 9y F DOS: 07/17/2015 12:47 Private Phys: [place] ED Phys: Clyde Leblanc MD Pediatrics CHIEF COMPLAINT: Enc. Type: ACUITY: Lower leg pain, traumatic Initial 3_Urgent Arrival Time - Date of Service Update ALLERGIES AND HOME MEDICATIONS Patient allergies: No known allergies. Home medications (list has NOT been verified by Pharmacist): Patient not currently taking any medications. Disposition of Patient Medications: Disposition status not applicable; no patient medications present in ED. Source of Medication History: Patient Height and Weight Weight: 47.0 kg. (est) Physicians caring for patient: Clyde Leblanc MD VITAL SIGNS Initials/Date/Time Temp(F) Rt. Pulse Resp Syst Diast Pos. O2 O2 Pain/10 Sat% flow KMM3 07/17/2015 97.6 O 125 20 91 63 S 97 Room 9 13:14 air ARF2 07/17/2015 96 20 120 74 S 96 Room 0 14:43 air MP3 07/17/2015 96 20 114 61 S 98 Room 4-6 16:15 air TRIAGE Triage start time:Friday, July 17, 2015 13:05 Patient/Research Technician denies admission to any hospital within the last 30 days. Chief complaint quote: Slide into a base while playing softball today at 1030. Left ankle pain with deformity. Seen at PMD office and had x-ray done here. Per father showed tibia fracture. Mental status: The patient is awake, alert and cooperative with an affect that is calm . The patient is oriented x 4 and speaking coherently Acceptable pain level: Patient does not understand question ABC's: Airway Status: open and patent . Respirations are: spontaneous . Breath sounds: clear equal bilaterally . The radial pulse is strong. Arrival: Patient arrived by wheelchair via private auto from home accompanied by parent(s) , through the main entrance Medications were taken prior to arrival. Ibuprofen taken CHILDREN TEACHER. Amount: 200 mg Date/time of last dose:Friday, July 17, 2015 11:00 TB Assessment: No known weight loss, cough, and/or fever. No known history of MRSA. No known history of VRE. Negative History of Other Chronic Drug Resistant Organism Infection Communicable Disease/Flu Sx's Assessment: Symptoms/Risk Factors: No flu symptoms or risk factors noted ; Isolation Interventions: Isolation interventions not indicated Allergy Band Status: No Allergy Band Applied The historian describes the patient as having left ankle pain from a(n) sliding into base . The symptoms are constant. . The pain is described as sharp and aching . Findings in the affected area include: decreased range of motion, no purposeful movement, swelling, deformity, capillary refill less than 3 seconds, no bruising and redness . Other pertinent symptoms and complaints include: increased pain with range of motion. The left dorsalis pedis pulse is fair (+2) Pediatric Abuse/Neglect Assessment: Patient assessed for signs of abuse or neglect Local Physician(s): [facility] Immunizations are up to date according to parent. Pediatric Fall Risk Assessment: Age: 5-12 years = 2 , alert, oriented, able to follow simple commands = 0 , ambulates unaided with strength, coordination = 1 ; Total criteria score is Less than 8 ; Fall Prevention Measures: not activated Patient Does Not Have Menstrual Periods Due To: Age PAST HISTORY The patient's pertinent past medical history is as follows: None The patient's pertinent past surgical history is as follows: None Vital signs reviewed: tachycardia , anxious and in pain. Resolved when pain was controlled. At the time of this signature, I have reviewed and agree with documented Past History. Patient is single. Patient lives with parents. FLOWSHEETS Nursing IV fluid flow sheet +--------+---------+-----+------+ + + + Initials Time IV Volume Intervention Rate of IV site Fluid infusion/infused +--------+---------+-----+------+ + + + JLB1 07/17/2015 IV site 16:41 discontinued, catheter intact upon removal. site wnl +--------+---------+-----+------+ + + + MEDICATION ADMINISTRATION Medication Administration : Morphine IV; dose: (0.1 mg/kg) =4 mg Clyde Leblanc MD 07/17/2015 13:56 Administered as ordered. Martha Shine RN 07/17/2015 14:44 Pain med response: The patient describes the pain as a 0/10. Patient states pain level is acceptable . Behaviors/Clinical signs: resting quietly Martha Shine RN 07/17/2015 15:05 : Zofran IV; dose: (0.15 mg/kg) =4 mg Clyde Leblanc MD 07/17/2015 13:56 Administered as ordered. Martha Shine RN 07/17/2015 14:45 Positive response: Good relief No signs of allergic reaction Martha Shine RN 07/17/2015 15:05 HISTORY OF PRESENT ILLNESS Note Time of initial contact with patient:Friday, July 17, 2015 13:55 HPI text: Sliding into base during softball game today and injured left leg. Unable to bear weight. Seen by windows system admin and had outpatient X-rays which showed tibia fracture. Sent here. No numbness or weakness to toes. No ankle pain. No other injury. REVIEW OF SYSTEMS Constitutional: No fever, no chills. Respiratory: No respiratory distress. GI: No nausea, vomiting. MS: See HPI. Neuro: No headache or focal weakness. No LOC. Skin: No skin rash or laceration/bleeding near injury. Endocrine: No history of diabetes. EXAM CONSTITUTIONAL: Well-developed, well-nourished individual in moderate to severe apparent current distress. HEAD: Normocephalic; atraumatic EYES: The extraocular muscles are intact. MOUTH/DENTAL: The lips, gums, and teeth appear normal. Mucus membranes are moist. NECK: The trachea is mid-line. The neck is supple and non-tender to palpation. There is good ROM. CARDIOVASCULAR: The heart has a regular rhythm with tachycardia initially in ED. S1 and S2 are normal. Pulses are equal bilaterally and there is brisk capillary refill. RESPIRATORY: Respiratory rate and effort are normal. There is normal chest excursion with respiration. The lungs are clear to auscultation bilaterally. GI/ABDOMEN: The abdomen is normal in appearance. There is no tenderness with palpation of all four quadrants. MUSCULOSKELETAL: There are no deformities noted in all four extremities. There is tenderness with STS but no laceration or puncture left mid to distal tibia. No foot tenderness. Normal dorsalis pedis pulse and foot is warm to touch. No right leg injury. INTEGUMENTARY: The skin appears normal for age and race. It is warm and dry. There are no rashes noted. NEUROLOGICAL: Patient is alert and oriented to person, place, and time. Sensory and motor functions are intact. The gait is not tested due to leg injury. Speech is normal. Strength is equal in upper extremities. Appearance and judgment seem appropriate. PSYCHOLOGICAL: The patient's mood and manner are appropriate. ORDERS Medicine : Morphine IV; dose: (0.1 mg/kg) =4 mg < Clyde Leblanc MD 07/17/2015 13:56> Notes: Medication and dosing double verified. < entered by <RH5 07-17-2015 14:41> : Zofran IV; dose: (0.15 mg/kg) =4 mg < Clyde Leblanc MD 07/17/2015 13:56> Radiology X-RAY: LEG, LOWER, LEFT ; Reason for exam: Trauma ; Transportation mode: [facility] [Reference: [id number]] < Clyde Leblanc MD 07/17/2015 16:37> CANCELLED BY Clyde Leblanc MD on 07/17/2015 16:38 REASON FOR CANCELLATION: Order placed on wrong chart. Treatment General Orders: Insert saline lock < Clyde Leblanc MD 07/17/2015 13:55> Ortho/DME Orders: Apply OCL Splint to posterior, left long-leg < Clyde Leblanc MD 07/17/2015 14:42> Ortho/DME Orders: Apply OCL Splint to stirrup, left tib/fib < Clyde Leblanc MD 07/17/2015 14:42> Consultation Please contact physician utilization coordinator for Orthopedic surgery consult < Clyde Leblanc MD 07/17/2015 14:13> Prescriptions [place] 5 mg(s) < Clyde Leblanc MD 07/17/2015 15:47> Special Instructions 1 tab PO Q 4-6 hours PRN leg pain. # 20 (twenty). DIAGNOSIS Fracture - tibia, left, closed DISPOSITION Nursing Disposition is: discharged. Reassessment prior to disposition: Pt stable at discharge, VSS, pain tolerable, ABC's WNL IV discontinued at discharge: The patient was discharged to home , via wheelchair , accompanied by parent/guardian . The patient's diagnosis, condition and treatment were explained to patient or parent/guardian. The patient/responsible alliance party expressed understanding. A discharge plan has been developed. A assistant case manager was not involved in the process. Aftercare instructions were reviewed with patient/responsible alliance party; verbalizes understanding. Departure Time (time patient left department):Saturday, July 17, 2015 16:42 Physician Medical Decision-making Note: X-rays done as outpatient show spiral fracture distal 1/3 of left tibia. No apparent fibula fracture. Neurovascularly intact. Fracture minimally-displaced. Given IV pain meds and felt much better after this. I spoke with Dr Arias, ED ortho backup today. Does not think patient needs immediate surgery and may not need surgery at all since fracture is minimally-displaced. Suggested long leg posterior splint and stirrup splint for stability. This was placed by cath lab technologist under my supervision. Conception better after leg immobilized. Will discharge and is to be non weight bearing until cleared by ortho. Father wants to have pediatric ortho operate if needed. I discussed this with Dr Arias and he states he will evaluate patient as outpatient and if patient needs surgery he will contact associate who is pediatric ortho. Father understands. Given Rx for pain meds. Should come back for numbness, increased pain or other problems. I discussed the case with family members and/or paramedics who were able to provide a more detailed history of the patient's present illness. Cardiovascular and respiratory monitoring were conducted while in the ED in order to closely monitor the patient's condition and response to treatment. This involved ongoing review of vital signs, cardiac monitoring and pulse oximetry. Discharge: Discharge from Emergency Department . The patient is discharged to home . Patient's condition is satisfactory. . The patient is to follow-up with : Efrain Arias MD, [address] [facility], [place], [place] . Purpose of referral: for re-evaulation and further treatment Rx Work/School Status: Return to Work (in): Immediately Restriction(s): no physical education Length of Activity Restriction(s): 4 week(s) Work/School Note NURSING NOTES 07/17/15 13:14 Temp(F) Rt. Pulse Resp Syst Diast Pos. O2 O2 Pain/10 Sat% flow 97.6 O 125 20 91 63 S 97 Room 9 air 07/17/15 Assessment/Reassessment: NEURO: alert, oriented to person, 13:35 place, time, event. No neuro deficits noted. RESP: airway patent; respirations even and unlabored. Breath sounds are clear. CV: no complaint of chest discomfort or pain; skin warm and dry; color WNL. GI: no complaints of abdominal discomfort, pain, nausea, vomiting or diarrhea. : no complaints of urinary symptoms. Musculoskele: Pain and swelling to left lower leg. Patient states that she injured left leg sliding into a base during a softball game. CSM is good/intact. Left pedal pulse is strong. Patient and family instructed that patient is to remain NPO until further notice. <ARF2> 07/17/15 14:21 Paper And Pulp Mill Operator paged: Efrain Arias MD <MH2> 07/17/15 14:21 Time first consult paged:Friday, July 17, 2015 14:21 <MH2> 07/17/15 14:43 Site number 1: # 20 ga. angio catheter inserted at/in the right antecubital area on 1 attempt <ARF2> 07/17/15 14:43 Temp(F) Rt. Pulse Resp Syst Diast Pos. O2 O2 Pain/10 Sat% flow 96 20 120 74 S 96 Room 0 air 07/17/15 ERT at bedside to apply posterior/stir-up splint to left leg. 15:06 Patient otherwise resting quietly. Denies pain at this time. VSS. <ARF2> 07/17/15 16:15 Temp(F) Rt. Pulse Resp Syst Diast Pos. O2 O2 Pain/10 Sat% flow 96 20 114 61 S 98 Room 4-6 air 07/17/15 Orthopedic Procedure/Treatments: Timing of procedure and/or 16:19 treatment: In treatment area: A long leg OCL splint was applied. A 4in X 2ft OCL splint was applied. An OCL stirrup splint was applied. A 4in X 2ft OCL splint was applied. to the left leg . CSM intact prior to and after applying OCL splints. <MP3> 07/17/15 IV fluid flow sheet 16:41 IV Fluid Volume Intervention Rate of infusion/infused IV site IV site discontinued, catheter intact upon removal. site wnl FORMS AND RELATED DOCUMENTATION AFTER CARE INSTRUCTIONS Crutch Use - Welsh R.I.C.E. - Welsh Splint Care - Welsh General discharge instruction - Welsh E/M Score Bed Assignments: EDWait IN 07/17/2015 12:47 ED5 [facility] 07/17/2015 13:09 Status Activity: Triage initiated. [facility] 07/17/2015 13:05 to treatment area. [facility] 07/17/2015 13:12 Physician evaluation initiated. [facility] 07/17/2015 13:55 Chart Documented By: [facility]: Clyde Leblanc MD JF2: UMER Mcallister JLB1: Goran Minor RN KMM3: Linda Nye RN ARF2: Martha Shine RN MH2: SUDHA Bailey MP3: BELLA Jackson RH5: Theresa Salamanca RN MC5: Citlaly Zhang, REG CH2: Caridad Sctot, [facility] Release Information: Patient released from tracking board 07/17/2015 16:42 Released by Goran Minor RN Signatures: Nursing Data electronically signed by: Zackery Oliver RN 07/21/2015 06:56 Chart electronically signed by: Clyde Leblanc MD 07/20/2015 11:13 Miscellaneous Chart Faxed to Physician Group: [facility] Printed By Nurse Tio RN on 06/18/2017 1:25 PM Medical Chart documented in this encounter Plan of Treatment Not on file documented as of this encounter Visit Diagnoses Not on filedocumented in this encounter
--- OUTSIDE RECORDS SUMMARY | 2024-08-04 19:38 | XMS_ITS | Encounter Summary ---
Author Organization [facility] [place] Address [address] [place] [address] Care Team Providers Care Sales Associate Cashier Name Role Phone Radha Segal) Primary Care Pr ovider -[phone] Encounter Details Date Type Department Care Team (Late st Contact Info) Description 06/25/2024 Patient Secure Message - MH/ [facility] [address] [place] [address] Simi Murphy (Ps) [address] [place] [address] Letter for my diagnoses Social History Tobacco Use Types Packs/Day Years [...] on filedocumented in this encounter Care Teams Sales Associate Cashier Relationship Specialty Start Date End Date Radha Segal) [address] [place] [phone] (Work) PCP - General 03/30/24 documented as of this encounter
--- OUTSIDE RECORDS SUMMARY | 2024-08-04 19:38 | XMS_ITS | Encounter Summary ---
Author Organization [facility] [place] Address [address] [place] [address] Care Team Providers Care Boat Mechanic Name Role Phone Cecily Mack) Primary Care Provider -[phone] Mayra Souza (D.OStevie) Primary Care Provide r -[phone] Monisha Weldon) Primary Care Provider Unavailable Liza Vincent) Primary Care Prov ider Unavailable Radha Segal) Primary Care Pr ovider -[phone] Encounter Details Date Type Department Care Team (Late st Contact Info) Description 01/28/2020 Clinical Documentati on MH/ [facility] FAMILY PS[facility] [address] [place] [phone] [place] [address] Social History Tobacco Use Types Packs/Day Years [...] - - Temperature 37.6 C (99.6 F) 01/28/2020 12:10 PM PDT Respiratory Rate - - Oxygen Saturation - - Inhaled Oxygen Concentration - - Weight 49.4 kg (109 lb) 01/28/2020 12:10 PM PDT Height 147.3 cm (4' 10) 01/28/2020 12:10 PM PDT Body Mass Index 22.78 01/28/2020 12:10 PM PDT Body Mass Index Percentile 77.01% 01/28/2020 12: 10 PM PDT Growth Chart: [facility] (Girls, 2- 20 Years) documented in this encounter Plan of Treatment Not on file documented as of this encounter Visit Diagnoses Not on filedocumented in this encounter Care Teams Boat Mechanic Relationship Specialty Start Date End Date Cecily Mack) [address] [place] [phone] -[phone] (Work) PCP - General 02/09/17 11/11/22 Mayra SouzaD.OStevie) [address] [place] [phone] (Work) PCP - General 11/12/22 11/17/22 Monisha Weldon) [address] [place] [phone] PCP - General 11/18/22 08/31/23 Liza Vincent) [address] [place] [phone] PCP - General 12/10/23 Radha Segal) [address] [phone] -[phone] (Work) PCP - General 03/30/24 documented as of this encounter
--- OUTSIDE RECORDS SUMMARY | 2024-08-04 19:38 | XMS_ITS | Encounter Summary ---
Author Organization [facility] [place] Address [address] [place] [address] Care Team Providers Care Bridge Painter Name Role Phone Cecily Mack) Primary Care Provider -[phone] Mayra Souza (D.OStevie) Primary Care Provide r -[phone] Monisha Weldon) Primary Care Provider Unavailable Liza Vincent) Primary Care Prov ider Unavailable Radha Segal) Primary Care Pr ovider -[phone] Encounter Details Date Type Department Care Team (Late st Contact Info) Description 12/22/2019 Clinical Documentati on MH/ [facility]ILD [facility] FAMILY PS[facility]CHI[facility]RY [address] [place] [phone] [place] [address] Social History Tobacco Use Types Packs/Day Years [...] - Pulse - - Temperature 37.4 C (99.3 F) 12/22/2019 10:49 AM PDT Respiratory Rate - - Oxygen Saturation - - Inhaled Oxygen Concentration - - Weight 47.4 kg (104 lb 6.4 oz) 12/22/19 20 10:49 AM PDT Height 147.3 cm (4' 10) 12/22/2019 10: 49 AM PDT Body Mass Index 21.82 12/22/2019 10:49 AM PDT Body Mass Index Percentile 69.95% 12/21 10:49 AM PDT Growth Chart: [facility] (Girls, 2- 20 Years) documented in this encounter Plan of Treatment Not on file documented as of this encounter Visit Diagnoses Not on filedocumented in this encounter Care Teams Bridge Painter Relationship Specialty Start Date End Date Cecily Mack) [address] [place] [phone] -[phone] (Work) PCP - General 02/09/17 11/11/22 Mayra Souza (D.OStevie) [address] [place] [phone] -[phone] (Work) PCP - General 11/12/22 11/17/22 Monisha Weldon) [address] [place] [phone] PCP - General 11/18/22 08/31/23 Liza Vincent) [address] [place] [phone] PCP - General 12/10/23 Radha SegalD.) [address] [place] [phone] -[phone] (Work) [facility] - General 03/30/24 documented as of this encounter
--- OUTSIDE RECORDS SUMMARY | 2024-08-04 19:38 | XMS_ITS | Encounter Summary ---
Author Organization [facility] [place] Address [address] [address] Care Team Providers Care Director Of Orthopedics Name Role Phone Cecily Mack) Primary Care Provider -[phone] Mayra Souza (D.OStevie) Primary Care Provide r -[phone] Monisha Weldon (Dimitris) Primary Care Provider Unavailable Liza Vincent) Primary Care Prov ider Unavailable Radha Segal (Dimitris) Primary Care Pr ovider -[phone] Encounter Details Date Type Department Care Team (Late st Contact Info) Description 01/23/2020 Orders Only CHILD AND FAMILY PSYCHIATRY [address] [place] [address] Lizet Olivarez) [address] [place] [address] -[phone] (Work) SECONDARY AMENORRHEA Social History Tobacco Use Types Packs/Day Years [...] Procedure Name Priority Date/Time Associated Diagnosis Comments ESTRADIOL, ULTRASENSITIVE, LC/MS/MS Routine 01/23/2020 2:38 PM PDT SECONDARY AMENORRHEA LH, PEDIATRIC Routine 01/23/2020 2:38 PM PDT SECONDARY AMENORRHEA FSH, PEDIATRIC Routine 01/23/2020 2:38 PM PDT SECONDARY AMENORRHEA TSH Routine 01/23/2020 2:38 PM PDT SECONDARY AMENORRHEA PROLACTIN Routine 01/23/2020 2:38 PM PDT SECONDARY AMENORRHEA HCG, QUALITATIVE Routine 01/23/2020 2:38 PM PDT SECONDARY AMENORRHEA documented in this encounter Results * ESTRADIOL, ULTRASENSITIVE, LC/MS/MS (01/23/2020 2:38 PM PDT) ESTRADIOL, ULTRASENSITIVE, LC MS/MS 17 pg/mL [facility] Comment: Adult Female Reference Ranges for Estradiol, Ultrasensitive: Follicular Phase: 39-375 pg/mL Luteal Phase: 48-440 pg/mL Postmenopausal Phase: < or = 10 pg/mL Pediatric Female Reference Ranges for Estradiol, Ultrasensitive: Pre-pubertal (1-9 years): < or = 16 pg/mL 10-11 years: < or = 65 pg/mL 12-14 years: < or = 142 pg/mL 15-17 years: < or = 283 pg/mL This test was developed and its analytical performance characteristics have been determined by [facility]. It has not been cleared or approved by FDA. This assay has been validated pursuant to the CLIA regulations and is used for clinical purposes. Test Performed at: [facility] [address] [address] Director: Jordan Nicholson MD, PhD, SUJEY 01/23/2020 2:38 PM PDT 01/23/2020 2:38 PM PDT Lizet Donnelly) Igra BLOOD Performing Organization Address City/[facility]/ZIP Co de Phone Number [facility] [address] [place] [phone] * TSH (01/23/2020 2:38 PM PDT) Pathologist [facility] TSH 1.3 0.5 - 4.5 uIU/mL [facility], [facility] Comment: Order TSH, for patients. TSH reference range is 0.1-3.0 uIU/mL for patients. 01/23/2020 2:38 PM PDT 01/23/2020 10:07 PM PDT Lizet Donnelly) Igra BLOOD Performing Organization Address City/[facility]/ZIP Co de Phone Number [facility], [facility] [address] [place] [address] * FSH, PEDIATRIC (01/23/2020 2:38 PM PDT) FSH, 3rd generation STORMY 4.42 0.64 - 10.98 mIU/mL [facility] Comment: Female Pediatric Reference Ranges for FSH: 0-4 years: Not established 5-9 years: 0.72-5.33 mIU/mL 10-13 years: 0.87-9.16 mIU/mL 14-17 years: 0.64-10.98 mIU/mL This test was developed and its analytical performance characteristics have been determined by [facility]. It has not been cleared or approved by FDA. This assay has been validated pursuant to the CLIA regulations and is used for clinical purposes. Test Performed at: [facility] [address] [address] Director: Jordan Nicholson MD, PhD, SUJEY 01/23/2020 2:38 PM PDT 01/23/2020 2:38 PM PDT Lizet Donnelly) Igra BLOOD [facility] [address] [place] [address] * PROLACTIN (01/23/2020 2:38 PM PDT) Prolactin 11 3 - 30 ng/mL [facility] 01/23/2020 2:38 PM PDT 01/23/2020 10:07 PM PDT Lizet Donnelly) Igra BLOOD Performing Organization Address City/[facility]/ZIP Co de Phone Number [facility], [facility] [address] [place] [address] * LH, PEDIATRIC (01/23/2020 2:38 PM PDT) LH, 3rd generation ICMA 1.69 0.97 - 14.70 mIU/mL [facility] Comment: Female Reference Ranges for LH (Luteinizing Hormone), Pediatric: Females: 3-7 years < or = 0.26 mIU/mL 8-9 years < or = 0.69 mIU/mL 10-11 years < or = 4.38 mIU/mL 12-14 years 0.04-10.80 mIU/mL 15-17 years 0.97-14.70 mIU/mL [facility] Stages I < or = 0.15 mIU/mL II < or = 2.91 mIU/mL III < or = 7.01 mIU/mL IV-V 0.10-14.70 mIU/mL This test was developed and its analytical performance characteristics have been determined by [facility]. It has not been cleared or approved by FDA. This assay has been validated pursuant to the CLIA regulations and is used for clinical purposes. Test Performed at: [facility] [address] [address] Director: Jordan Nicholson MD, PhD, SUJEY 01/23/2020 2:38 PM PDT 01/23/2020 2:38 PM PDT Lizet Donnelly) Igra BLO[facility] [address] [place] [address] * HCG, QUALITATIVE (01/23/2020 2:38 PM PDT) hCG,ser,ql NEGATIVE NEGATIVE [facility], [facility] 01/23/2020 2:38 PM PDT 01/23/2020 10:39 PM PDT Lizet Donnelly) Igra BLOOD [facility], [facility] [address] [place] [address] documented in this encounter Visit Diagnoses Diagnosis SECONDARY AMENORRHEA documented in this encounter Care Teams Director Of Orthopedics Relationship Specialty Start Date End Date Cecily Mack) [address] [place] [phone] (Work) PCP - General 02/09/17 11/11/22 Mayra Souza) [address] [place] [phone] (Work) PCP - General 11/12/22 11/17/22 Monisha Weldon) [address] [place] [phone] PCP - General 11/18/22 08/31/23 Liza Vincent) [address] [place] [phone] PCP - General 12/10/23 Radha Segal) [address] [address] -[phone] (Work) [facility] - General 03/30/24 documented as of this encounter
--- OUTSIDE RECORDS SUMMARY | 2024-08-04 19:38 | XMS_ITS | Encounter Summary ---
Author Organization [facility] [place] Address [address] [place] [address] Care Team Providers Care Fit Model Name Role Phone Cecily Mack) Primary Care Provider -[phone] Mayra Souza (D.OStevie) Primary Care Provide r -[phone] Monisha Weldon) Primary Care Provider Unavailable Liza Vincent) Primary Care Prov ider Unavailable Radha Segal) Primary Care Pr ovider -[phone] Encounter Details Date Type Department Care Team (Late st Contact Info) Description 03/17/2020 Clinical Documentati on MH/ CHILD AND FAMILY PSYCHIATRY [address] [place] [phone] [place] [address] Social History Tobacco Use Types Packs/Day Years [...] - Pulse - - Temperature 36.8 C (98.2 F) 03/17/2020 11:42 AM PST Respiratory Rate - - Oxygen Saturation - - Inhaled Oxygen Concentration - - Weight 51.8 kg (114 lb 3.2 oz) 03/17/20 20 11:42 AM PST Height 147.3 cm (4' 10) 03/17/2020 11: 42 AM PST Body Mass Index 23.87 03/17/2020 11:42 AM PST Body Mass Index Percentile 82.95% 03/17 11:42 AM PST Growth Chart: [facility] (Girls, 2- 20 Years) documented in this encounter Plan of Treatment Not on file documented as of this encounter Visit Diagnoses Not on filedocumented in this encounter Care Teams Fit Model Relationship Specialty Start Date End Date Cecily Mack) [address] [place] [phone] -[phone] (Work) PCP - General 02/09/17 11/11/22 Mayra Souza (D.OStevie) [address] [place] [phone] -[phone] (Work) PCP - General 11/12/22 11/17/22 Monisha Weldon) [address] [place] [phone] PCP - General 11/18/22 08/31/23 Liza Vincent) [address] [place] [phone] PCP - General 12/10/23 Radha SegalD.) [address] [place] [phone] -[phone] (Work) [facility] - General 03/30/24 documented as of this encounter
--- OUTSIDE RECORDS SUMMARY | 2024-08-04 19:38 | XMS_ITS | Referral Summary ---
Author Organization [facility] Address [address] [place] [address] Care Team Providers Care Manager Of Engineering Name Role Phone Unavailable Primary Care Provider [...] deemed pertinent for the care of the patient.[facility] Social History Tobacco Use Types Packs/Day Years Used Date Smoking Tobacco: Never Assessed Comments Unknown Sex and Gender Information Value Date Recorded Sex Assigned at Not on file Legal Sex Female 10:01 AM PDT Gender Identity Not on file Sexual Orientation Not on file Plan of Treatment Not on file
--- OUTSIDE RECORDS SUMMARY | 2024-08-04 19:38 | XMS_ITS | Encounter Summary ---
Author Organization [facility] No [facility] [place] Address [address] [place] [address] Care Team Providers Care Medical Aide Name Role Phone Radha Segal) Primary Care Pr ovider -[phone] Encounter Details Date Type Department Care Team (Late st Contact Info) Description 06/25/2024 Patient Secure Message - MH/ CHILD AND FAMILY PSYCHIATRY [address] [place] [address] Ryann Hernández (Ps) [address] [place] [address] Letter of my diagnosis Social History Tobacco Use Types Packs/Day Years [...] on filedocumented in this encounter Care Teams Medical Aide Relationship Specialty Start Date End Date Radha Segal) [address] [place] [phone] -[phone] (Work) PCP - General 03/30/24 documented as of this encounter
--- OUTSIDE RECORDS SUMMARY | 2024-08-04 19:38 | XMS_ITS | Encounter Summary ---
Author Organization [facility] [place] Address [address] [place] [address] Care Team Providers Care Benefits Director Name Role Phone Cecily Mack) Primary Care Provider -[phone] Mayra Souza (D.OStevie) Primary Care Provide r -[phone] Monisha Weldon) Primary Care Provider Unavailable Liza Vincent) Primary Care Prov ider Unavailable Radha Segal) Primary Care Pr ovider -[phone] Encounter Details Date Type Department Care Team (Late st Contact Info) Description 12/10/2019 Clinical Documentati on MH/ CHILD AND FAMILY PSYCHIATRY [address] [place] [phone] [place] [address] Social History Tobacco Use Types Packs/Day Years [...] on filedocumented in this encounter Care Teams Benefits Director Relationship Specialty Start Date End Date Cecily Mack) [address] [place] [address] -[phone] (Work) PCP - General 02/09/17 11/11/22 Mayra SouzaD.OStevie) [address] [place], [place] [address] [address] -[phone] (Work) PCP - General 11/12/22 11/17/22 Monisha Weldon) [address] [place], [place] [address] [place] [address] PCP - General 11/18/22 08/31/23 Liza Vincent) [address] [place], [place] [address] [address] PCP - General 12/10/23 Radha Segal) [address] [place] [address] -[phone] (Work) PCP - General 03/30/24 documented as of this encounter
--- OUTSIDE RECORDS SUMMARY | 2024-08-04 19:39 | XMS_ITS | Clinical Summary ---
Author Organization [facility] Address [address] , [place] [address] [place] [address] Care Team Providers Care Infection Preventionist Name Role Phone Chica Klein MD Primary Care Provider [phone] Source Comments These records are disclosed for treatment purposes as permitted by state and federal privacy law. Any further disclosure may only be done as permitted by law or with the patient's written authorization.[facility] Allergies Active Allergy Reactions Criticality Noted Date Comments Peanut Itching 01/09/2014 Medications loratadine (CLARITIN) 10 mg tablet Take 10 mg by mouth daily. Active fluticasone (FLONASE) 50 mcg/spray nasal sprayIndication s:Rhinitis, allergic 1 spray by nostrils (both) route daily. 1 each 3 01/09/2014 Active albuterol sulfate (VENTOLIN HFA) 90 mcg/puff inhalerIndicati ons:Asthma 2 puffs by inhaled (oral) w/spacer route every 4 (four) hours as needed for wheezing or cough. 1 Inhaler 3 01/09/2014 Active albuterol 0.083% (PROVENTIL) 2.5 mg/3 mL nebulizer solution 01/26/2014 Active HYDROcodone-marcel taminophen (NORCO 5-325) 5 mg-325 mg per tablet Take 1 tablet by mouth every 6 (six) hours as needed for pain score, moderate (4-6). Active Active Problems Problem Noted Date Diagnosed Date Allergic rhinitis 12/09/2014 Asthma 12/09/2014 Immunizations Name Administration Dates Next Due DTaP 04/06/2006 DTaP-Hep B-IPV 03/31/2005,02/03/2005,2004 DTaP-IPV 07/05/2009 Hep A, ped/adol, 2 dose 10/08/2006,10/13/2005 Hib (PRP-T) 01/08/2006, 5,02/03/2005,2004 Influenza, Tri, adjuvanted, PF 4,02/07/2013,02/03/2012,2009,03/13/2008,01/28/2007,04/06/2006,1 2004 Influenza, live, trivalent, intranasal 02/27/2011 MMR 09/28/2009 MMRV 01/08/2006 Novel Influenza [id number], PF 03/02/2009 Pneumococcal conjugate, PCV7 10/13/2005, 03/31/2005,02/03/2005,2004 TST-PPD test, ID 07/05/2009 varicella 02/07/2013 Social History Tobacco Use Types Packs/Day Years Used Date Smoking Tobacco: Never Assessed Comments Unknown Sex and Gender Information Value Date Recorded Sex Assigned at Not on file Legal Sex Female 6:21 PM PDT Gender Identity Not on file Sexual Orientation Not on file Last Filed Vital Signs Vital Sign Reading Time Taken Comments Blood Pressure 112/68 12/09/2014 2:25 PM PDT Pulse 69 12/09/2014 2:25 PM PDT Temperature 36.7 C (98 F) 07/17/2015 11:37 AM PDT Respiratory Rate 20 12/09/2014 2:25 PM PDT Oxygen Saturation - - Inhaled Oxygen Concentration - - Weight 47.5 kg (104 lb 12 oz) 07/17/2015 11:37 A M PDT Height 139.7 cm (4' 7) 12/09/2014 2:25 PM PDT Body Mass Index - - Plan of Treatment Health Maintenance Due Date Last Done Comments DTaP / Tdap / Td vaccines (6 - Tdap) 10/03/2015 07/05/2009, 04/06/2006, 03/31/2005, Additional history exists Well Visit 12/10/2015 12/09/2014, 01/09/2014 HPV vaccines (1 - 3-dose series) 10/03/2019 COVID-19 Vaccine (2023- season) 2023 Influenza Vaccine (#1) 2023 4, 02/07/2013, 02/03/2012, Additional history exists Hepatitis B vaccines Completed 03/31/2005, 02/03/2005, 2004 Pneumococcal (PCV) vaccines Aged Out 09/28, 03/31/2005, 02/03/2005, Additional history exists No longer eligible based on patient's age to complete this topic Hib vaccines Completed 01/08/2006, 05/2004, 02/03/2005, Additional history exists Hepatitis A vaccines Completed 10/08/2006, 10/14/19 06 Polio (IPV/OPV) vaccines Completed 010, 03/31/2005, 02/03/2005, Additional history exists MMR vaccines Completed 09/28/2009, 01/08/2006 Varicella vaccines Completed 02/07/2013, 01/08/2006 Meningococcal (ACYW) vaccine Aged Out No longer eligible based on patient's age to complete this topic RSV <20 Months Aged Out No longer rafia gible based on patient's age to complete this topic Rotavirus vaccines Aged Out No longer eligible based on patient's age to complete this topic Care Teams Infection Preventionist Relationship Specialty Start Date End Date Chica Klein MD [address] [facility] [place] [address] [facility] [place] [address] PCP - General Unknown 01/08/14
--- OUTSIDE RECORDS SUMMARY | 2024-08-04 19:39 | XMS_ITS | Encounter Summary ---
Author Organization [facility] [place] Address [address] [place] [address] Care Team Providers Care Director Medical Writing Name Role Phone Cecily Mack) Primary Care Provider -[phone] Mayra Souza (D.OStevie) Primary Care Provide r -[phone] Monisha Weldon) Primary Care Provider Unavailable Liza Vincent) Primary Care Prov ider Unavailable Radha Segal) Primary Care Pr ovider -[phone] Encounter Details Date Type Department Care Team (Latest Contact Info) Description 06/08/2020 Pharmacy Initiated Order CHILD AND FAMILY PSYCHIATRY [address] [place] [phone] OBSESSIVE COMPULSIVE DISORDER Social History Tobacco Use Types Packs/Day Years [...] as of this encounter Visit Diagnoses Diagnosis OBSESSIVE COMPULSIVE DISORDER documented in this encounter Care Teams Director Medical Writing Relationship Specialty Start Date End Date Cecily Mack) [address] [place] [address] -[phone] (Work) PCP - General 02/09/17 11/11/22 Mayra Souza) [facility] [place] [address] -[phone] (Work) PCP - General 11/12/22 11/17/22 Monisha Weldon) [facility] [place] [address] PCP - General 11/18/22 08/31/23 Liza Vincent) [address] [place], [place] [address] [address] PCP - General 12/10/23 Radha Segal) [address] [place] [address] -[phone] (Work) PCP - General 03/30/24 documented as of this encounter
--- OUTSIDE RECORDS SUMMARY | 2024-08-04 19:39 | XMS_ITS | Encounter Summary ---
Author Organization [facility] [place] Address [address] [place] [address] Care Team Providers Care Account Retention Representative Name Role Phone Cecily Mack) Primary Care Provider -[phone] Marya Souza (D.OStevie) Primary Care Provide r -[phone] Monisha Weldon) Primary Care Provider Unavailable Liza Vincent) Primary Care Prov ider Unavailable Radha Segal) Primary Care Pr ovider -[phone] Encounter Details Date Type Department Care Team (Late st Contact Info) Description 03/24/2020 Clinical Documentati on MH/ CHILD AND FAMILY PSYCHIATRY [address] [place] [phone] [place] [address] Social History Tobacco Use Types Packs/Day Years [...] - - Temperature 36.9 C (98.5 F) 03/24/2020 11:47 AM PST Respiratory Rate - - Oxygen Saturation - - Inhaled Oxygen Concentration - - Weight 51.5 kg (113 lb 9.6 oz) 03/24/20 20 11:47 AM PST Height 147.3 cm (4' 10) 03/24/2020 11: 47 AM PST Body Mass Index 23.74 03/24/2020 11:47 AM PST Body Mass Index Percentile 82.22% 03/24 11:47 AM PST Growth Chart: [facility] (Girls, 2- 20 Years) documented in this encounter Plan of Treatment Not on file documented as of this encounter Visit Diagnoses Not on filedocumented in this encounter Care Teams Account Retention Representative Relationship Specialty Start Date End Date Cecily Mack) [address] [place] [phone] -[phone] (Work) PCP - General 02/09/17 11/11/22 Myara Souza (D.OStevie) [address] [place] [phone] -[phone] (Work) PCP - General 11/12/22 11/17/22 Monisha Weldon) [address] [place] [phone] PCP - General 11/18/22 08/31/23 Liza Vincent) [address] [place] [phone] PCP - General 12/10/23 Radha SegalD.) [address] [place] [phone] -[phone] (Work) [facility] - General 03/30/24 documented as of this encounter
[2024-08-04 19:45] VITALS: BP 125/74; PULSE 48; RESP 18; TEMP 36.7; O2SAT 97
== END 2024-08-04 19:45 | disposition home or self-care (01) ==
PROVIDERS: Emergency Provider Family Medicine
DX: F50.00 Anorexia nervosa, unspecified (principal); R00.1 Bradycardia, unspecified
CPT/HCPCS: 36415; 80053; 82248; 83735; 84100; 85025; 93005; 99283; 99284